=== PATIENT | female | born 1930 | race Caucasian/White ===

== ENCOUNTER 2016-10-24 10:21 | Observation (INO) | payer OTHER, MEDICARE ==
[~2016-10-24] VITALS: Ht 157.5 cm; Wt 56.7 kg
[~2016-10-24 10:21] MED LIST: ALBUTEROL1.25 MG/3 INH/SOL; ANTIVERT 12.512.5 MG PO; AUGMENTIN 875 M1 TAB PO; AUGMENTIN 875-1 EACH PO; CARVEDILOL25 M1 PO; CATAPRES-TTS 11 EACH TOP; COZAAR100 M1 PO; COZAAR50 M1 PO; FENOFIBRATE145 MG PO; FUROSEMIDE20 M1 PO; GUAIFENESIN-COD10 ML PO; KEFLEX500 M1 PO; LASIX20 M1 PO; LEVAQUIN500 MG PO; LEVOTHYROXINE50 MCG PO; LOPRESSOR50 M1 PO; LOSARTAN POTAS100 M1 PO; NEXIUM40 M1 PO; NORVASC 5MG TAB5 MG PO; ZOFRAN4 M1 PO
--- NOTE | 2016-10-24 10:45 | ED GENERAL ADULT ---
History of Present Illness General Chief Complaint: General Adult Stated Complaint: SENT IN BY DR WALKER, THINK HAVING [place] Source: patient Exam Limitations: no limitations Vital Signs & Intake/Output Vital Signs & Intake/Output Vital Signs Date Time Temp Pulse Resp B/P Pulse O2 O2 Flow FiO2 Ox Delivery Rate 10/24 1718 97.8 64 18 128/70 96 Room Air 10/24 1609 96.5 68 18 115/72 93 Room Air 10/24 1405 96.2 82 20 138/75 10/24 1405 96.2 82 20 138/75 10/24 1353 96.2 82 20 138/75 98 Room Air 10/24 1219 96.0 70 18 139/66 98 Room Air 10/24 1129 98 Room Air 10/24 1026 96.5 83 16 154/88 97 Room Air Allergies Coded Allergies: simvastatin (MUSCLE ACHES 06/11/16) Reconcile Medications Amlodipine Besylate 10 MG TABLET 1 TAB PO DAILY BP (Reported) Clonidine 0.2 MG/24 HOUR PATCH.TDWK 1 PAT TOP QW BP (Reported) EVERY FRIDAY Esomeprazole (Nexium) 40 MG CAPSULE.DR 1 CAP PO PRN GI (Reported) Hydrochlorothiazide 25 MG TABLET 1 TAB PO DAILY BP (Reported) Levothyroxine Sodium 50 MCG TABLET 1 TAB PO DAILY hypothyroidism (Reported) Losartan (Cozaar) 100 MG TABLET 100 MG PO DAILY hypertension Metoprolol Tartrate (Lopressor) 50 MG TABLET 1 TAB PO BID BP (Reported) Triage Note: 86 Y/O FEMALE SENT FROM DR HURST OFFICE FOR EVAL OF C/P X 3 DAYS; PT REPORTS HX GERD AND ATTRIBUTED SYMPTOMS TO THAT. REPORTS INTERMITTENT NAUSEA AND SOB. TAKEN FOR EKG/EVAL Triage Nurses Notes Reviewed? yes Onset: Abrupt Duration: day(s): Timing: recent history HPI: 10/24/16 11 AM 78-year-old female presents to the emergency department for chest pain and difficulty breathing. According to the patient over the past 3-4 days she's had intermittent episodes of chest pain. She thought that it was consistent with her gastroesophageal reflux but did not respond to antacids. The onset of the symptoms have been abrupt, the duration has been for several days, the severity is significant; as her symptoms required her to come to the emergency department for care. She has a past medical history of cardiac disease and is status post pacemaker insertion. Her EKG shows paced beats. She was seen and evaluated by Dr. Walker in his office today and she was referred for admission to the telemetry unit. She says that she does have associated palpitations. Also some minor shortness of breath. Review of systems, she does admit to some intermittent lower quadrant abdominal pain and bloating. Her past surgical history is significant for colostomy and reversal. Past History Travel History Traveled to [place] past 21 day No Medical History Any Pertinent Medical History? 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 No Review of Systems Review of Systems Constitutional: Denies: fever. EENTM: Denies: visual changes. Respiratory: Reports: short of breath. Cardiovascular: Reports: chest pain. GI: Reports: abdominal pain. Genitourinary: Reports: no symptoms. Musculoskeletal: Reports: no symptoms. Skin: Denies: rash. Neurological/Psychological: Reports: no symptoms. Hematologic/Endocrine: Reports: no symptoms. Physical Exam Physical Exam General Appearance: alert, awake, anxious, mild distress Head: atraumatic, normal appearance Eyes: Bilateral: normal appearance, PERRL, EOMI. Ears, Nose, Throat: normal pharynx, normal ENT inspection Neck: normal inspection, supple, full range of motion Respiratory: normal breath sounds, no respiratory distress Cardiovascular: regular rate/rhythm Peripheral Pulses: 4+ radial (R), 4+ radial (L) Gastrointestinal: soft, non-tender Back: normal range of motion Extremities: pedal edema Neurologic/Psych: no motor/sensory deficits, awake, alert, oriented x 3 Skin: intact, normal color, warm/dry Core Measures ACS in differential dx? Yes CVA/TIA Diagnosis: No Severe Sepsis Present: No Septic Shock Present: No Progress Differential Diagnoses I considered the following diagnoses in my evaluation of the patient: [Acute coronary syndrome, pulmonary embolism, costochondritis, COPD, CHF,] Plan of Care: Orders Procedure Date/time Status Nothing by Mouth 10/25 B Active LIPID PANEL 10/25 0600 Active CBC WITHOUT DIFFERENTIAL 10/25 0600 Active BASIC ELECTROLYTES PLUS BUN&CR 10/25 0600 Active DIPYRIDAMOLE STRESS W/NUC IMAG 10/25 0600 Active TROPONIN LEVEL 10/25 0000 Active EKG 10/25 0000 Active Heart Healthy Diet 10/24 D Complete PARTIAL THROMBOPLASTIN TIME 10/24 2030 Complete PROTHROMBIN TIME 10/24 2030 Complete PARTIAL THROMBOPLASTIN TIME 10/24 2028 Active Heparin Drip- ACS 10/24 1840 Active Vital Signs 10/24 1804 Complete Teach/Educate 10/24 1804 Complete Pain Treatment and Response 10/24 1804 Complete Nutritional Intake, Monitor 10/24 1804 Complete Isolation 10/24 1804 Complete Intake & Output 10/24 1804 Complete Patient Care Conference 10/24 1804 Active Activity/Ambulation 10/24 1804 Complete Vital Signs 10/24 1711 Complete Teach/Educate 10/24 1711 Active Pain Treatment and Response 10/24 1711 Active Nutritional Intake, Monitor 10/24 1711 Active Isolation 10/24 1711 Active Intake & Output 10/24 1711 Complete Patient Care Conference 10/24 1711 Active Activity/Ambulation 10/24 1711 Active TROPONIN LEVEL 10/24 1700 Complete EKG 10/24 1700 Active Pathway - chart 10/24 1422 Active Code Status 10/24 1422 Active ECHOCARDIOGRAM 10/24 1413 Active Patient Data 10/[address] in observation 10/24 1249 Active ED Holding Orders 10/24 1249 Active Vital Signs 10/24 1249 Active Code Status 10/24 1249 Complete Intake & Output 10/24 1048 Active TROPONIN LEVEL 10/24 1043 Complete MAGNESIUM 10/24 1043 Complete COMPREHENSIVE METABOLIC PANEL 10/24 1043 Complete CHOLESTEROL 10/24 1043 Complete CBC WITHOUT DIFFERENTIAL 10/24 1043 Complete EKG 10/24 1022 Active Pathway - chart 10/24 UNK Active House Staff 10/24 UNK Active Lab Add-on Test 10/24 UNK Active VTE Mechanical Prophylaxis 10/24 UNK Active CASE MANAGEMENT CONSULT 10/24 UNK Active Current Medications Sig/Norman Start time Last Medication Dose Stop Time Status Admin Aspirin 81 MG DAILY 10/25 1000 AC (Aspirin) Clonidine 2 PAT Q168 10/25 1000 AC (Catapres) Clopidogrel Bisulfate 75 MG DAILY 10/25 1000 AC (Plavix) Hydrochlorothiazide 25 MG DAILY 10/25 1000 AC (Hydrodiuril) Losartan Potassium 100 MG DAILY 10/25 1000 AC (Cozaar) Levothyroxine Sodium 0.05 MG DAILY AC 10/25 0700 AC (Synthroid) Omeprazole 40 MG BID 10/24 2200 AC (Prilosec) Atorvastatin Calcium 80 MG 1700 10/24 1700 AC (Lipitor) Acetaminophen 650 MG Q6P PRN 10/24 1430 AC (Tylenol) Morphine Sulfate 4 MG Q4P PRN 10/24 1430 AC (Morphine) Nitroglycerin 0.4 MG Q 5 MINUTES X 3 DO.. 10/24 1430 AC (Nitrostat) Laboratory Tests 10/24/16 2050: APTT Pending 10/24/16 1644: Troponin I < 0.01 10/24/16 1448: PT 11.5, INR 1.10, APTT 32 10/24/16 1110: Anion Gap 10, Estimated GFR 39 L, BUN/Creatinine Ratio 16.2, Glucose 92, Calcium 10.2, Magnesium 2.0, Total Bilirubin 0.7, AST 33, ALT 46, Alkaline Phosphatase 99, Troponin I < 0.01, Total Protein 7.5, Albumin 4.4, Globulin 3.1, Albumin/Globulin Ratio 1.4, Cholesterol 258 H 10/24/16 1045: PT Cancelled, INR Cancelled, APTT Cancelled, CBC w Diff NO MAN DIFF REQ, RBC 4.59, MCV 86.6, MCH 28.9, RDW 14.2, MPV 6.9 L, Gran % 65.0, Lymphocytes % 22.6, Monocytes % 8.5, Eosinophils % 2.7, Basophils % 1.2, Absolute Granulocytes 4.6, Absolute Lymphocytes 1.6, Absolute Monocytes 0.6, Absolute Eosinophils 0.2, Absolute Basophils 0.1, PUBS MCHC 33.4 Initial ED EKG: PACED BEATS Prior EKG: unchanged Departure Departure Disposition: STILL A PATIENT Condition: Stable Clinical Impression Primary Impression: Chest pain Referrals: NALLELY SANTOS,JULIAN Montelongo (PCP/Family) Departure Forms: Customer Survey General Discharge Information Comments PATIENT: MANUEL CHEN PRESENT AGE: 86 PATIENT ACCOUNT NO: [id number] : [birth year] LOCATION: [facility] ORDERING PHYSICIAN: CHAPARRO BELLO DO SERVICE DATE: 10/24/16 EXAM TYPE: RAD - XRY-PORTABLE CHEST XRAY EXAMINATION: XR PORTABLE CHEST CLINICAL INFORMATION: Chest pain. COMPARISON: 06/11/2016 TECHNIQUE: Portable AP view of the chest was obtained. FINDINGS: Lungs are symmetrically expanded. No evidence of progression in the chronic interstitial disease. No acute, focal consolidation, pneumothorax or pleural effusion. There is a right pectoral region cardiac pacemaker with transvenous leads extending to the right atrium and right ventricle. Mild cardiomegaly. There is atherosclerotic calcification of the aorta. Bone density appears diffusely decreased. There is mild-moderate osteoarthrosis of the glenohumeral joints. IMPRESSION: 1. Chronic interstitial lung disease. 2. No acute cardiopulmonary findings compared to 06/11/2016. DICTATED BY: PRAMOD ALVARADO MD DATE/TIME DICTATED:10/24/161107 INVENTORY AUDIT CLERK:CLAUDIA DATE/TIME TRANSCRIBED:10/24/161107 CONFIDENTIAL, DO NOT COPY WITHOUT APPROPRIATE AUTHORIZATION. <Electronically signed in Other Vendor System> SIGNED BY: PRAMOD ALVARADO MD 10/24/16 1110 The patient was treated with by mouth aspirin and placed in observation for stress testing in the a.m. Observation Note Spoke With: AARON SANTOS PhD,LEVI Gauthier Physician Advisor Notified: GINNY SANTOS,LEVI [facility] Place Patient In: Non-ED OBS Care Area Rationale for Observation: My rational for observation is as follows [the patient needs observation for serial troponins, cardiology consultation, telemetry monitoring, inpatient stress test]. Critical Care Note Critical Care Note Critical Care Time: non-applicable
[2016-10-24 10:54] LABS: ABSOLUTE BASOPHIL COUNT 0.1 /CUMM (0.0-0.2); ABSOLUTE EOSINOPHIL COUNT 0.2 /CUMM (0.0-0.7); ABSOLUTE GRANULOCYTE CT 4.6 /CUMM (1.4-6.5); ABSOLUTE LYMPH COUNT 1.6 /CUMM (1.2-3.4); ABSOLUTE MONOCYTE COUNT 0.6 /CUMM (0.10-0.60); BASOPHIL % 1.2 % (0.0-2.0); EOSINOPHIL % 2.7 % (0-5); HEMATOCRIT 39.8 % (37-47); MEAN CORPUSCULAR HGB 28.9 PG (27.0-31.0); MEAN CORPUSCULAR HGB CONC 33.4 G/DL (33.0-37.0); MEAN CORPUSCULAR VOLUME 86.6 FL (81.0-99.0); MEAN PLATELET VOLUME 6.9 FL (7.4-10.4); PLATELET COUNT 510 /CUMM (130-400); RBC DISTRIBUTION WIDTH 14.2 % (11.5-14.5); RED BLOOD CELL CT 4.59 /CUMM (4.20-5.40)
--- NOTE | 2016-10-24 11:15 | RADIOLOGY REPORT ---
EXAMINATION: XR PORTABLE CHEST CLINICAL INFORMATION: Chest pain. COMPARISON: 06/11/2016 TECHNIQUE: Portable AP view of the chest was obtained. FINDINGS: Lungs are symmetrically expanded. No evidence of progression in the chronic interstitial disease. No acute, focal consolidation, pneumothorax or pleural effusion. There is a right pectoral region cardiac pacemaker with transvenous leads extending to the right atrium and right ventricle. Mild cardiomegaly. There is atherosclerotic calcification of the aorta. Bone density appears diffusely decreased. There is mild-moderate osteoarthrosis of the glenohumeral joints. IMPRESSION: 1. Chronic interstitial lung disease. 2. No acute cardiopulmonary findings compared to 06/11/2016.
[2016-10-24] MEDS ORDERED: AMLODIPINE BESY10 M1 PO (13:39)
[2016-10-24] MEDS ORDERED: LOPRESSOR50 M1 PO (13:41)
[2016-10-24] MEDS ORDERED: HYDROCHLOROTHIA25 M1 PO (13:41)
[2016-10-24] MEDS ORDERED: CLONIDINE1 EAC1 TOP (13:42)
[2016-10-24 15:06] LABS: PT 11.5 SEC (9.4-12.5); PTT 32 SEC (25-37)
--- NOTE | 2016-10-24 16:06 | PN- Student ---
Subjective Subjective: Chief complaint: Chest pain w/ radiation to jaw and dyspnea Source: Patient and HPI: Mrs. Mcknight is an 86 year old white female with a pertinent history of paroxysmal atrial fibrillation, stroke, HTN, hyperlipidemia, GERD, and hyperthyroidism. She states that she has had a substernal chest pain with heaviness that was characterized as 9/10 on the pain scale for the last 3-4 days. She reports jaw pain associated with the chest pain along with nausea and vomitting, shortness of breath, and also stated an episode of light headedness. Her pain is aggravated with leaning forward and relieved by laying down. She thought her pain was associated with her GERD but when it didnt respond to medication she decided to seek medical attention. Upon seeing Dr. Girmes today she was referred to [place] ED for possible unstable angina or GERD exacerbation. PMH: She has a past medical history of paroxysmal atrial fibrillation, RBBB, 3rd degree AV block, and syncope (pacemaker in december 2015). She also has a history of HTN, hyprlipidemia, and cholelithiasis. Along with her hx of GERD she also reports Diverticulitis. She states a history of osteoarthritis, hypothyroidism, and stroke. Allergies- simvastatin Current Medications Sig/Norman Start time Last Medication Dose Stop Time Status Admin Aspirin 81 MG DAILY 10/25 1000 AC (Aspirin) Clonidine 2 PAT Q168 10/25 1000 AC (Catapres) Clopidogrel Bisulfate 75 MG DAILY 10/25 1000 AC (Plavix) Hydrochlorothiazide 25 MG DAILY 10/25 1000 AC (Hydrodiuril) Losartan Potassium 100 MG DAILY 10/25 1000 AC (Cozaar) Levothyroxine Sodium 0.05 MG DAILY AC 10/25 0700 AC (Synthroid) Omeprazole 40 MG BID 10/24 2200 AC (Prilosec) Atorvastatin Calcium 80 MG 1700 10/24 1700 AC (Lipitor) Acetaminophen 650 MG Q6P PRN 10/24 1430 AC (Tylenol) Morphine Sulfate 4 MG Q4P PRN 10/24 1430 AC (Morphine) Nitroglycerin 0.4 MG Q 5 MINUTES X 3 DO.. 10/24 1430 AC (Nitrostat) surgical hx- colon resection 7 yrs ago w/ colostomy and reversal, and colovaginal fistula repair, also has history of hiatal hernia surgery, and erik fundoplication. FH: no pertinent positives Social: patient denies smoking, denies alcohol use, and denies illicit drug use. ROS: slight epigastric discomfort as well as around lower left quadrant. Objective Objective: Vital Signs Date Time Temp Pulse Resp B/P Pulse O2 O2 Flow FiO2 Ox Delivery Rate 10/25 1205 118/70 10/25 1205 118/70 10/25 1205 118/70 10/25 1204 118/70 10/25 0746 97.8 59 16 110/70 95 Room Air 10/24 2230 97.3 62 18 124/64 96 Room Air 10/24 2120 62 124/64 10/24 1718 97.8 64 18 128/70 96 Room Air 10/24 1609 96.5 68 18 115/72 93 Room Air Physical Exam: Mrs. Mcknight is a healthy looking lady who did not appear to be in any acute distress. She did not have any labored breathing and was alert and oriented x 3. HEENT- [place], mucus membranes moist and pink, no lesions or bruising noted, no swelling or lymphadenopathy noted. tachea was midline. CV- S1 and S2 heard. no murmurs gallops or rubs. Lungs- bilateral basilar crackles heard on auscultation, good air flow heard. Abdominal- soft with no guarding, slight tenderness over epigastric area as well as lower left quadrant. Bowel sounds present. Skin- skin was well perfused, no lesions or echymosis noted MSK- strength equal bilaterally in both UE and LE. Some pain to palpation of left calf, no swelling or erythema noted, Ester's negative. EKG- continuous paced beats Results Results: Laboratory Tests 10/24/16 1448: PT 11.5, INR 1.10, APTT 32 10/24/16 1110: Anion Gap 10, Estimated GFR 39 L, BUN/Creatinine Ratio 16.2, Glucose 92, Calcium 10.2, Magnesium 2.0, Total Bilirubin 0.7, AST 33, ALT 46, Alkaline Phosphatase 99, Troponin I < 0.01, Total Protein 7.5, Albumin 4.4, Globulin 3.1, Albumin/Globulin Ratio 1.4, Cholesterol 258 H 10/24/16 1045: PT Cancelled, INR Cancelled, APTT Cancelled, CBC w Diff NO MAN DIFF REQ, RBC 4.59, MCV 86.6, MCH 28.9, RDW 14.2, MPV 6.9 L, Gran % 65.0, Lymphocytes % 22.6, Monocytes % 8.5, Eosinophils % 2.7, Basophils % 1.2, Absolute Granulocytes 4.6, Absolute Lymphocytes 1.6, Absolute Monocytes 0.6, Absolute Eosinophils 0.2, Absolute Basophils 0.1, PUBS MCHC 33.4 Assessment/Plan Assessment: Mrs. Mcknight is an 86 yo W female with a pertinent ho HTN, hyperlipidemia, Atrial fibrillation, and stoke. She was referred to us by Dr. Grimes for possible unstable angina due to chest pain w/radiation to jaw and sob for approximately 3-4 days. She has an implanted pacemaker, no abnormal EKG changes, and no elevation in troponins. Since arriving her pain has subsided and she appears to be in no acute distress nor does she have any difficulties breathing. Problem List: 1. Chest pain w/radiation to jaw and dyspnea- had pacemaker implanted 2015 2. CVA- occurred 8 years ago. 3. atria fibrillation- currently on anticoagulation therapy. 4. HTN- well controlled by current medications 5. Hyperlipidemia- currently on medications although levels still elevated ( cholesterol- 258). 6. GERD- seems to be controlled with current medication regiment 7. Hypothyroidism- controlled on current medications 8. COPD- not currently on medications. no symptoms. 9. LLE pain- described more like muscle soreness. Plan: Initial assessment is indicative of a possible current ACS, however severity is not known. No signs of ischemia was present on EKG. Patient most likely had a case of angina or possibly an episode of GERD. Will observe overnight and continue to check labs and telemetry for any changes and treat accordingly. Problem List: 1. Chest pain w/radiation and sob- serial troponins and EKG to assess for any sign of ischemia or infarction, Possible nuclear stress test. May need stress test to evaluate angina. maintain pain control with acetominophen 650mg Q6P PRN, morphine 4mg Q4P PRN, Nitroglycerin 0.4mg PRN. Continue aspirin therapy as well 81mg daily. 2. CVA- Continue plavix 75mg daily, check INR for therapeutic range. 3. atria fibrillation- continue anticoagulation therapy listed above 4. HTN- continue losartan 100mg daily, clonidine 2 PAT Q168, and hydrochlorothiazide 25mg daily for BP control 5. Hyperlipidemia- continue atorvastatin 80mg 1700, assess labs and titrate appropriately 6. GERD- continue omeprazole 40mg BID 7. Hypothyroidism- continue levothyroxine 0.05mg daily, assess with labs. 8. LLE pain- monitor pain. If it persists order venous dopler to assess for DVT.
[2016-10-24 17:18] VITALS: BP 128/70
--- NOTE | 2016-10-24 19:19 | Cons- Cardiology ---
"General Information and HPI Consulting Request Date of Consult: 10/24/16 Requested By: AARON SANTOS PhD,LEVI Gauthier History of Present Illness: Shelby is an 86 year old female with history of hypertension, dyslipidemia, CVA and chronic RBBB. She was last admitted to [facility] following a syncopal episode and was discovered to be in a third degree AV block. She is now s/p a [employer] MRI safe dual chamber permanent pacemaker and has a 100% ventricular paced rhythm. Over the past three days this patient has noted a moderate epigastric chest pressure radiating to her left jaw and shoulder. It is associated with vomiting, diaphoresis and shortness of breath. There is no relief by antacids. The discomfort is worse with walking but there is not complete relief even if she is still and lying down. She denies lightheadedness or any palpitaitons beyond baseline. To review this patient's prior history, following pacemaker placement this patient had felt dramatically improved and was more energetic. She was able to walk and think in a more lucid fashion. She did complain of a vertiginous sensation for a minute or so when she changed her position and planned to see Dr. Goodwin to evaluate for a labyrinthitis. At her baseline she reports brief palpitations lasting for a couple minutes on some nights. I do suspect that she may have renal artery stenosis but the patient has refused further workup with a renal artery MRA. Shelby has previously been very intolerant of antihypertensive medications, regardless of what I have prescribed. She previously reported an odd sensation in the back of her head and episodes of hypotension. She refused both Coreg and Labetolol although they both appeared to work well in terms of lowering her pressure. She also did not like the Lasix due to frequent urination. She stopped these medications and is currently on Losartan 100mg daily, Amlodipine 10mg daily, HCTZ 25mg daily, Metoprolol 50mg BID and a clonidine TTS1 patch. It should also be noted that her hospital admission was complicated by mild decompensated CHF in the setting of her heart block and receiving IV fluids to maintain her BP. To review this patients prior event she the felt weak and while eating dinner experienced a brief syncopal episode. In the ER she was initially in a sinus rhythm but subsequently became symptomatic and was found to be in complete heart block. Transcutaneous pacing was initiated along with sedation and I came in emergently to place a temporary pacemaker wire. Prior cardiac workup included an echocardiogram showing a normal EF of 60% with mild left ventricular hypertrophy and mild MR and TR. Her stress test showed a moderate size fixed inferior defect without ischemia. Her EF by this study was 49%. Allergies/Medications Allergies: Coded Allergies: simvastatin (MUSCLE ACHES 06/11/16) Home Med List: Amlodipine Besylate 10 MG TABLET 1 TAB PO DAILY BP (Reported) Clonidine 0.2 MG/24 HOUR PATCH.TDWK 1 PAT TOP QW BP (Reported) EVERY CADEN Esomeprazole (Nexium) 40 MG CAPSULE.DR 1 CAP PO PRN GI (Reported) Hydrochlorothiazide 25 MG TABLET 1 TAB PO DAILY BP (Reported) Levothyroxine Sodium 50 MCG TABLET 1 TAB PO DAILY hypothyroidism (Reported) Losartan (Cozaar) 100 MG TABLET 100 MG PO DAILY hypertension Metoprolol Tartrate (Lopressor) 50 MG TABLET 1 TAB PO BID BP (Reported) Past History Travel History Traveled to [place] past 21 day No Medical History Neurological: CVA EENT: NONE Cardiovascular: AFIB (paroxysmal), hypertension, hyperlipidemia, syncope, PAROXYSMAL AFIB RBBB 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, heart block s/p permanent pacemaker Respiratory: COPD Gastrointestinal: diverticulitis (with colostomy reversal), hiatal hernia, COLOSTOMY (REVERSED) Arpita fundoplication colonovaginal fistula s/p surgical repair Hepatic: cholelithiasis Renal: NONE Musculoskeletal: osteoarthritis Psychiatric: NONE Endocrine: hypothyroidism Blood Disorders: NONE Cancer(s): 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 Other Medical Hx: Hiatal Hernia Heart Block diverticulitis s/p colostomy with reversal paroxysmal atrial fibrillation HTN (HYPERTENSION) (401.9 | I10) PACEMAKER (V45.01 | Z95.0) Hypothyroidism colonovaginal fistula s/p repair Osteoarthritis Cholelithiasis aspiration pneumonitis RBBB (426.4 | I45.10) Arpita fundoplication CVA (CEREBRAL VASCULAR ACCIDENT) (434.91 | I63.9) SYNCOPE (780.2 | R55) DYSLIPIDEMIA (272.4 | E78.5) Surgical History Surgical History: Arpita fundoplication colonovaginal fistula s/p repair Family History Relations & Conditions If Any: Relation not specified for: *No pertinent family history Psychosocial History Where Do You Live? Assisted Living Who Do You Live With? spouse Services at Home: Oxygen Primary Language: Irish Smoking Status: Never Smoked ETOH Use: denies use Illicit Drug Use: denies illicit drug use Living Will? yes Functional Ability ADLs Independent: dressing, eating, toileting, bathing. Ambulation: cane IADLs Independent: shopping, housework, finances, food prep, telephone, transportation , medication admin. Exam & Diagnostic Data Vital Signs and I&O Vital Signs Date Time Temp Pulse Resp B/P Pulse O2 O2 Flow FiO2 Ox Delivery Rate 10/24 1718 97.8 64 18 128/70 96 Room Air 10/24 1609 96.5 68 18 115/72 93 Room Air 10/24 1405 96.2 82 20 138/75 10/24 1405 96.2 82 20 138/75 10/24 1353 96.2 82 20 138/75 98 Room Air 10/24 1219 96.0 70 18 139/66 98 Room Air 10/24 1129 98 Room Air 10/24 1026 96.5 83 16 154/88 97 Room Air Intake & Output 10/24 1600 10/24 0800 10/24 0000 10/23 1600 10/23 0800 10/23 0000 Intake Total Output Total Balance Patient 125 lb Weight Physical Exam: General: WD/ WN female in NAD; alert and oriented x 3 HEENT: NC/AT, PERRL, EOMI Neck: no JVD, no carotid bruit Heart: RRR with 3/6 systolic murmur at the apex and RUSB Lungs: clear bilaterally Abdomen: soft, nontender, +ve bowel sounds Extremities: no edema Assessment/Plan Assessment/Plan * Shelby has risk factors for coronary artery disease and symptoms consistent with this diagnosis. Unfortunately, her ECG shows a 100% paced rhythm and therefore is not helpful for diagnosing ischemia. Her first set of cardiac enzymes is reassuring. We will admit this patient to telemetry and treat her for unstable angina. Obtain three sets of cardiac enzymes to assess for a possible MD. Begin aspirin, Plavix and IV heparin. Continue her beta juan and begin a statin. If recurrent chest pain begin NTG paste 1/2 inch Q 6 hours. If she rules out for an MD we ted risk stratify her with a pharmocologic stress test in the morning. * Obtain an echocardiogram * If myocardial ischemia is ruled out then we will consider a GI consult for evaluation of a GI source of pain. For now begin a PPI. Consult Acknowledgment - Thank you for your consult request."
--- NOTE | 2016-10-24 21:52 | History & Physical ---
See Addendum DONNA SANTOS,NELLA 10/24/16 1419: General Information and HPI MD Statement: I have seen and personally examined MANUEL CHEN and documented this H&P. The patient is a 86 year old F who referred from Dr Grimes's office for chest pain for three days. Source of Information: patient Exam Limitations: no limitations History of Present Illness: 86 yo F with pmh of afib and third degree AV block s/p pacemaker placement in December 2015, hypertension, dyslipidemia, CVA 8 years ago, chronic right bundle- branch block, hiatal hernia s/p Arpita fundoplication, hypothyroidism, osteoarthritis, colovaginal fistula s/p surgical repair, was referred from Dr. Grimes's clinic after being initially for chest pain since 3 days. According to the patient, she was in her usual state of health 3 days ago when she started having central substernal chest pain, and she started when she was in stool, walking, was severe, 8-9/10 in severity, and is associated with nausea but no vomiting, and she also "felt hot" then. She has history of GERD and used to have similar symptoms which was previously amenable to antacids, but not this time. "Peptobismal" seemed to help her to some extent but leaning forward or walking made it worse. She admitted to some shortness of breath as well, which improved with rest. Also admitted to some pain over right side of her abdomen vaguely when questioned. She denied fever, cough, bowel or bladder changes, legs swelling, headache, long travel, and was compliant to her medications. She visited her laundry folder Dr Vickey Grimes for the same who referred her to the emergency department given her symptoms and past cardiac history to be evaluated and further managed. Allergies/Medications Allergies: Coded Allergies: simvastatin (MUSCLE ACHES 06/11/16) Home Med list Amlodipine Besylate 10 MG TABLET 1 TAB PO DAILY BP (Reported) Clonidine 0.2 MG/24 HOUR PATCH.TDWK 1 PAT TOP QW BP (Reported) EVERY FRIDAY Esomeprazole (Nexium) 40 MG CAPSULE. 1 CAP PO PRN GI (Reported) Hydrochlorothiazide 25 MG TABLET 1 TAB PO DAILY BP (Reported) Levothyroxine Sodium 50 MCG TABLET 1 TAB PO DAILY hypothyroidism (Reported) Losartan (Cozaar) 100 MG TABLET 100 MG PO DAILY hypertension Metoprolol Tartrate (Lopressor) 50 MG TABLET 1 TAB PO BID BP (Reported) Past History Travel History Traveled to [place] past 21 day No Medical History Neurological: CVA EENT: NONE Cardiovascular: AFIB (paroxysmal), hypertension, hyperlipidemia, syncope, PAROXYSMAL AFIB RBBB 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 heart block s /p permanent pacemaker Gastrointestinal: diverticulitis (with colostomy reversal), hiatal hernia, COLOSTOMY (REVERSED) Arpita fundoplication colonovaginal fistula s/p surgical repair Hepatic: cholelithiasis Renal: NONE Musculoskeletal: osteoarthritis Psychiatric: NONE Endocrine: hypothyroidism Blood Disorders: NONE Cancer(s): 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 Other Medical Hx: Hiatal Hernia Heart Block diverticulitis s/p colostomy with reversal paroxysmal atrial fibrillation HTN (HYPERTENSION) (401.9 | I10) PACEMAKER (V45.01 | Z95.0) Hypothyroidism colonovaginal fistula s/p repair Osteoarthritis Cholelithiasis aspiration pneumonitis RBBB (426.4 | I45.10) Arpita fundoplication CVA (CEREBRAL VASCULAR ACCIDENT) (434.91 | I63.9) SYNCOPE (780.2 | R55) DYSLIPIDEMIA (272.4 | E78.5) History of MRSA: No History of VRE: No History of CDIFF: No Isolation History: Standard Influenza Vaccine: 04/13/16 Surgical History Surgical History: Arpita fundoplication colonovaginal fistula s/p repair Past Family/Social History Family History Relations & Conditions if any Relation not specified for: *No pertinent family history Psychosocial History Where do you live? Assisted Living Who Do You Live With? spouse Services at Home: Oxygen Primary Language: Citizen Of [place] Smoking Status: Never Smoked ETOH Use: denies use Illicit Drug Use: denies illicit drug use Living Will? yes Functional Ability ADLs Independent: dressing, eating, toileting, bathing. Ambulation: cane IADLs Independent: shopping, housework, finances, food prep, telephone, transportation , medication admin. Review of Systems Review of Systems Constitutional: Reports: see HPI. EENTM: Reports: no symptoms. Cardiovascular: Reports: see HPI, chest pain, palpitations. Denies: edema, peripheral edema. Respiratory: Reports: no symptoms. GI: Reports: see HPI, abdominal pain (right anterior half). Genitourinary: Reports: see HPI (incontinence). Musculoskeletal: Reports: no symptoms. Skin: Reports: no symptoms. Neurological/Psychological: Reports: no symptoms. Hematologic/Endocrine: Reports: no symptoms. All Other Systems: Reviewed and Negative Post Menopausal: Yes Exam & Diagnostic Data Last 24 Hrs of Vital Signs/I&O Vital Signs Date Time Temp Pulse Resp B/P Pulse O2 O2 Flow FiO2 Ox Delivery Rate 10/240 62 124/64 10/24 1718 97.8 64 18 128/70 96 Room Air 10/24 1609 96.5 68 18 115/72 93 Room Air 10/24 1405 96.2 82 20 138/75 10/24 1405 96.2 82 20 138/75 10/24 1353 96.2 82 20 138/75 98 Room Air 10/24 1219 96.0 70 18 139/66 98 Room Air 10/24 1129 98 Room Air 10/24 1026 96.5 83 16 154/88 97 Room Air Intake & Output 10/24 1600 10/24 0800 10/24 0000 Intake Total Output Total Balance Patient 56.699 kg Weight Physical Exam General Appearance Alert, Oriented X3, Cooperative, No Acute Distress Skin No Rashes, No Breakdown, No Significant Lesion HEENT Atraumatic, PERRLA, EOMI, Mucous Membr. moist/pink Neck Supple, No JVD Lymphatic Cervical nl Cardiovascular Regular Rate, Normal S1, Normal S2 Lungs Clear to Auscultation, b/l basal crackles present, otherwise normal breath sounds Abdomen Normal Bowel Sounds, Soft, No Tenderness Neurological grossly intact Extremities No Clubbing, No Cyanosis, No Edema, Normal Pulses, No Tenderness/ Swelling Vascular Normal Pulses, Pulses Symmetrical Rectal Guiac Negative Last 24 Hrs of Labs/Pete: Laboratory Tests 10/24/16 2050: APTT Pending 10/24/16 1644: Troponin I < 0.01 10/24/16 1448: PT 11.5, INR 1.10, APTT 32 10/24/16 1110: Anion Gap 10, Estimated GFR 39 L, BUN/Creatinine Ratio 16.2, Glucose 92, Calcium 10.2, Magnesium 2.0, Total Bilirubin 0.7, AST 33, ALT 46, Alkaline Phosphatase 99, Troponin I < 0.01, Total Protein 7.5, Albumin 4.4, Globulin 3.1, Albumin/Globulin Ratio 1.4, Cholesterol 258 H 10/24/16 1045: PT Cancelled, INR Cancelled, APTT Cancelled, CBC w Diff NO MAN DIFF REQ, RBC 4.59, MCV 86.6, MCH 28.9, RDW 14.2, MPV 6.9 L, Gran % 65.0, Lymphocytes % 22.6, Monocytes % 8.5, Eosinophils % 2.7, Basophils % 1.2, Absolute Granulocytes 4.6, Absolute Lymphocytes 1.6, Absolute Monocytes 0.6, Absolute Eosinophils 0.2, Absolute Basophils 0.1, PUBS MCHC 33.4 Diagnostic Data EKG Results paced rhythm, rate 89, QTc 476, AZ 180, QRS 154 CXR Results IMPRESSION: 1. Chronic interstitial lung disease. 2. No acute cardiopulmonary findings compared to 06/11/2016. DICTATED BY: PRAMOD ALVARADO MD DATE/TIME DICTATED:10/24/161107 JAVA PROGRAMMING PROFESSOR:CLAUDIA DATE/TIME TRANSCRIBED:10/24/161107 Assessment/Plan Assessment: 86 yo F with pmh of afib and third degree AV block s/p pacemaker placement in December 2015, hypertension, dyslipidemia, CVA 8 years ago, chronic right bundle- branch block, hiatal hernia s/p Arpita fundoplication, hypothyroidism, osteoarthritis, colovaginal fistula s/p surgical repair, was referred from Dr. Grimes's clinic after being initially for chest pain since 3 days. She is currently being observed in the telemetry floor for the following issues: #Chest pain evaluation, ruling out unstable angina Patient's cardiac history, symptom of substernal chest pain which is different than her usual GERD symptoms, associated with nausea, shortness of breath that decreases with rest, not amenable to antacids, warrants an evaluation for angina. Her initial two sets of troponins are negative, but her EKG cannot be commented as it is paced. -Patient to be observed in telemetry unit -Patient already received a full dose of aspirin and plavix in the emergency department -Stress testing tomorrow, so NPO from midnight -Nitroglygerin paste as needed for chest pain -Adequate pain control, and rest -Guiac test is negative (test done by me in the emergency department), so can start IV Heparin drip -Echocardiogram to assess wall motion abnormalities, and cardiac functioning -If unstable angina is rule out, then will pursue GI consultation and workup -Resume her home meds for now #GERD -Continue PPI -If unstable angina is rule out, then will pursue GI consultation and workup #Hypertension Continue home meds Amlodipine, Losartan, Metoprolol, HCTZ, Clonidine patch #Hyperlipidemia Continue statin from home #Diet Heart healthy #DVT ppx IV Heparin #Code status DNR/DNI As Ranked By This Provider Problem List: 1. Unstable angina 2. Chest pain 3. Hyperlipidemia 4. Hyperthyroidism 5. Essential hypertension Core Measures/Miscellaneous Acute Coronary Syndrome ACS Diagnosis: Yes Date of most recent Echo 11/07/14 Last Known EF % 65 SCOTT/ARB For EF <40% Yes ASA W/I 24hr of admit Yes Beta-Alberto W/I 24hrs Yes LDL assessed W/I 24 hrs Yes Currently on Statin Yes Cerebrovascular Accident CVA/TIA Diagnosis: No Congestive Heart Failure CHF Diagnosis: No Venous Thromboembolism VTE Risk Factors: Age > 40 No [facility] VTE prophylaxis d/t: No contraindications No VTE Pharm Prophylaxis d/t: No contraindications VTE Diagnosis: No VTE Type: NONE VTE Confirmed by (Test): NONE Severe Sepsis Severe Sepsis Present: No Septic Shock Septic Shock Present: No Miscellaneous Documentation Attending Case Discussed With: AARON SANTOS PhD,VICKEY Gauthier Primary Care Physician: JULIAN BROWNING MD Patient sees these Specialists Cardiology Level of Patient Care: Telemetry YVON BEASLEY 10/24/16 2310: Resident Review Statement Resident Statement: examined this patient, discussed with public health internship, agreed with public health internship, amended to note Other Findings: 86-year-old lady with past medical history of hypothyroidism, hypertension, pacemaker with history of paroxysmal A. fib,ILD?, Bowel perforation is status post colostomy reversal , GERD that the's fundoplication in with chief complaint of chest pain for 3 days. She reports that she has substernal chest pain 8 out of 10 associated with shortness of breath and occasional palpitations with one-time sweating which happen intermittently during his 3 days. Patient reported that she also had very severe GERD however after taking Zantac her pain did not go away. But after taking Pepto-Bismol Savastano chest pain was markedly better. Patient denies any fever, chills and diarrhea and constipation any coughing. Given the acute nature of the chest pain, patient saw Dr. Grimes today and is getting admitted for getting the nuclear stress test tomorrow. Vital signs on admission were stable, Skin No Rashes, No Breakdown, No Significant Lesion HEENT Atraumatic, PERRLA, EOMI Neck Supple, No JVD, No thryomegaly Lymphatic Cervical nl Cardiovascular Regular Rate, Normal S1, Normal S2, 3/6 systolic Lungs bilateral crackles in the lung (mid lungs) Abdomen Normal Bowel Sounds, Soft, mild left sided abdominal pain in the previous colostomy area Neurological Normal Speech, Strength at 5/5 X4 Ext, Sensation Intact Extremities No Clubbing, No Cyanosis, No Edema,Normal Pulses stool Heme occult test was negative CBC was remarkable for elevated platelets, creatinine 1.3(baseline), troponin wasunremarkable EKG showed ventricular pacing, rate 73, unable to assess the STT changes due to ventricular pacing rhythm Assessment and plan chest pain /rule out ACS ACS * Admit to Telemetry 24 hour monitoring * Serial EKGs and Troponins x 3 * Administer Aspirin 325 mg PO and plavix PO 300 once * Check Vital Signs Q6 * Cardiology Dr [place] already aware * Echocardiography * Check CBC, BEP * [facility] * High doses statin, aspirin, Plavix daily * NPO for nuclear stress test tomorrow * Administer Heparin 30100 U IV Q24 * Nitroglycerin when necessary for chest pain * Tylenol and morphine for pain hx of GERD * IV PPI and GI cocktail once * 40 mg omeprazole twice a day starting from tomorrow HTN * Continue continue clonide patch (0.2 mg) every 7 days changing on Fridays * Continue metoprolol, amlodipine, hydrochlorothiazide, losartan Hypothyroidism * Continue levothyroxine DNR/DNI, heart healthy diet, DVT prophylaxis is mechanical and IV heparin
[2016-10-24 22:30] VITALS: BP 124/64
[2016-10-24 22:32] LABS: PTT 69 SEC (25-37)
--- NOTE | 2016-10-25 06:53 | PN- Housestaff ---
Subjective Follow-up For: chest pain Complaints: no complaints Tele-Events Since Last Visit: Overnight telemetry shows single pacing, hr 59-61, no overnight event Subjective: Patient being observed in telemetry for chest pain. I followed up and examine the patient today. She is resting comfortably in a chair, not in distress, does not have any chest pain or discomfort anymore, vitals have been stable, no overnight events. Specifically, no nausea, vomiting, shortness of breath, swelling of legs, has not required additional oxygen. She is currently waiting for the stress test and is eager to know if she can go home soon. Review of Systems Constitutional: Reports: no symptoms, see HPI. Objective Last 24 Hrs of Vital Signs/I&O Vital Signs Date Time Temp Pulse Resp B/P Pulse O2 O2 Flow FiO2 Ox Delivery Rate 10/25 1624 98.6 60 18 110/70 95 Room Air 10/25 1600 Room Air 10/25 1205 118/70 10/25 1205 118/70 10/25 1205 118/70 10/25 1204 118/70 10/25 0746 97.8 59 16 110/70 95 Room Air 10/24 2230 97.3 62 18 124/64 96 Room Air 10/24 2120 62 124/64 10/24 1718 97.8 64 18 128/70 96 Room Air Intake & Output 10/25 1600 10/25 0800 10/25 0000 Intake Total 675 157.2 112 Output Total Balance 675 157.2 112 Intake, IV 75 107.2 112 Intake, Oral 600 50 Number 0 0 Bowel Movements Patient 56.699 kg Weight Physical Exam General Appearance: Alert, Oriented X3, Cooperative, No Acute Distress Other Physical Findings: Skin No Rashes, No Breakdown, No Significant Lesion HEENT Atraumatic, PERRLA, EOMI, Mucous Membr. moist/pink Neck Supple, No JVD Lymphatic Cervical nl Cardiovascular Regular Rate, Normal S1, Normal S2 Lungs Clear to Auscultation, b/l basal crackles present, otherwise normal breath sounds Abdomen Normal Bowel Sounds, Soft, No Tenderness Neurological grossly intact Extremities No Clubbing, No Cyanosis, No Edema, Normal Pulses, No Tenderness/ Swelling Vascular Normal Pulses, Pulses Symmetrical Current Medications: Current Medications Sig/Norman Start time Last Medication Dose Route Stop Time Status Admin Acetaminophen 650 MG Q6P PRN 10/24 1430 AC PO Amlodipine Besylate 10 MG DAILY 10/24 1358 AC 10/25 PO 1205 Aspirin 81 MG DAILY 10/25 1000 DC PO Atorvastatin Calcium 80 MG 1700 10/24 1700 AC PO Clonidine 2 PAT Q168 10/25 1000 AC 10/25 TOP 1204 Clopidogrel Bisulfate 75 MG DAILY 10/25 1000 AC 10/25 PO 1204 Dipyridamole 30 MG ONE ONE 10/25 0830 DC Dextrose/Water 34 ML IV 10/25 0859 Heparin Sodium 25,000 UNIT Q24H 10/24 1415 DC 10/24 (Porcine) IV 1428 Sodium Chloride 500 ML Hydrochlorothiazide 25 MG DAILY 10/25 1000 AC 10/25 PO 1205 Levothyroxine Sodium 0.05 MG DAILY AC 10/25 0700 AC 10/25 PO 0633 Losartan Potassium 100 MG DAILY 10/25 1000 AC 10/25 PO 1205 Metoprolol Tartrate 50 MG BID 10/24 1400 AC 10/25 PO 1205 Morphine Sulfate 4 MG Q4P PRN 10/24 1430 AC IV Nitroglycerin 0.4 MG Q 5 MINUTES X 3 DO.. 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 Grimes's clinic after being initially for chest pain since 3 days. Continuing to observe patient in telemetry floor for the following issues: #Chest pain evaluation, ruling out unstable angina Patient's cardiac history, symptom of substernal chest pain which is different than her usual GERD symptoms, associated with nausea, shortness of breath that decreases with rest, not amenable to antacids, warrants an evaluation for angina. Her 3 sets of troponins are negative, but her EKG cannot be commented as it is paced. -Continue to observe in telemetry unit until she gets pharmacologic stress test and depending on the results we can decide further management/disposition -Continue Nitroglygerin paste as needed for chest pain -Adequate pain control, and rest -Echocardiogram shows normal ejection fraction 65%, with impaired LV relaxation, borderline pulmonary hypertension among others, wall motion abnormalities were not noted -Resume her home meds for now -UPDATE: Persantine Stress test and resting SPECT test results: A small fixed perfusion abnormality involving the apex and adjacent apical anterior wall is noted. Minimal reversible component may be present, but this abnormality is predominantly fixed. No other perfusion abnormalities are noted. Left ventricular wall motion and ejection fraction are normal. #GERD -Continue PPI -If unstable angina is rule out, then will pursue GI consultation and workup #Hypertension Continue home meds Amlodipine, Losartan, Metoprolol, HCTZ, Clonidine patch #Hyperlipidemia Continue statin from home #Diet Heart healthy #DVT ppx IV Heparin #Code status DNR/DNI Problem List: 1. Chest pain Pain Ratin Pain Location: - Pain Goal: Remain pain free Pain Plan: prn Tomorrow's Labs & Rationales: -
[2016-10-25 07:46] VITALS: BP 110/70
--- NOTE | 2016-10-25 08:59 | ECHOCARDIOGRAM REPORT ---
MANUEL CHEN Age: 86 : 1930 Gender: F Exam Date: 10/24/2016 18:35 Exam Location: [address] Ht (in): 62 Wt (lb): 125 BSA: 1.58 BP: 128 / 70 Ordering Physician: YVON BEASLEY MD Referring Physician: Vickey Grimes MD, PhD Technologist: Nicole Lopes [facility] Room Number: [id number] Indications: CHEST PAIN Rhythm: atrial and ventricular paced rhythm Technical Quality: good FINDINGS Left Ventricle Normal left ventricular size with mild left ventricular hypertrophy. Normal systolic function with no obvious regional wall motion abnormalities. Diastolic filling patterm is consistent with impaired LV relaxation. The ejection fraction is visually estimated at 65%. Right Ventricle The right ventricle is normal in size and function. Pacemaker lead is noted. Right Atrium The right atrium is normal in size. Pacemaker lead noted. Left Atrium The left atrium is mildly enlarged. The interatrial septum is intact. Mitral Valve The mitral valve demonstrates mild posterior annular calcification with normal function. There is trace to mild mitral regurgitation. Aortic Valve Moderately sclerotic aortic valve with mild to moderate stenosis stenosis. There is no aortic regurgitation. Tricuspid Valve The tricuspid valve is normal in structure and function. There is moderate tricuspid regurgitation. Pulmonary artery systolic pressure is mildly elevated to 36mmHg. Pulmonic Valve Structurally normal pulmonic valve. There is mild pulmonic regurgitation. Pericardium Normal pericardium without effusion. No pleural effusion. Great Vessels Normal aortic root dimension. The aortic arch and great vessels are well seen and are normal. CONCLUSIONS 1. Normal EF of 65% with impaired LV relaxation. 2. Mild left ventricular hypertrophy. 3. Right atrial and ventricular pacemaker leads noted. 4. Mild left atrial enlargment. 5. Mitral annular calcification wtih trace to mild mitral regurgitation. 6. Moderate tricuspid regurgitation. 7. Mild pulmonic regurgitation. 8. Mild to moderate aortic stenosis. 9. Borderline pulmonary hypertension. Vickey Grimes M.D. (Electronically Signed) Final Date: 25 October 2016 08:58 MEASUREMENTS (Male / Female) Normal Values 2D ECHO LV Diastolic Diameter PLAX 3.7 cm 4.2 - 5.9 / 3.9 - 5.3 cm LV Systolic Diameter PLAX 2.1 cm 2.1 - 4.0 cm LV Fractional Shortening PLAX 43.2 % 25 - 46 % LV Ejection Fraction 2D Teich 75.2 % IVS Diastolic Thickness 1.4 cm LVPW Diastolic Thickness 1.4 cm LV Relative Wall Thickness 0.8 RV Internal Dim ED PLAX 2.9 cm 1.9 - 3.8 cm LVOT Diameter 2.2 cm Aortic Root Diameter 3.1 cm LA Systolic Diameter LX 4.2 cm 3.0 - 4.0 / 2.7 - 3.8 cm LA Volume 19.0 cm 18 - 58 / 22 - 52 cm Ascending Aorta Diameter 3.7 cm DOPPLER AV Peak Velocity 230.0 cm/s AV Peak Gradient 21.2 mmHg AV Mean Velocity 138.0 cm/s AV Mean Gradient 9.0 mmHg AV Velocity Time Integral 44.0 cm LVOT Peak Velocity 67.7 cm/s LVOT Peak Gradient 1.8 mmHg LVOT Mean Velocity 45.7 cm/s LVOT Mean Gradient 1.0 mmHg LVOT Velocity Time Integral 14.0 cm LVOT Stroke Volume 53.2 cm AV Area Cont Eq vti 1.2 cm AV Area Cont Eq pk 1.1 cm MV Peak Velocity 115.0 cm/s MV Peak Gradient 5.3 mmHg MV Mean Velocity 57.8 cm/s MV Mean Gradient 2.0 mmHg Mitral E Point Velocity 58.7 cm/s Mitral A Point Velocity 104.0 cm/s Mitral E to A Ratio 0.6 MV PHT Velocity 65.2 cm/s MV Deceleration [place] 149.0 cm/s MV Pressure Half Time 131.3 ms MV Area PHT 1.7 cm MV Deceleration Time 325.0 ms TR Peak Velocity 276.0 cm/s TR Peak Gradient 30.5 mmHg Right Atrial Pressure 5.0 mmHg Pulmonary Artery Systolic Pressu 35.5 mmHg Right Ventricular Systolic Press 35.5 mmHg PV Peak Velocity 97.9 cm/s PV Peak Gradient 3.8 mmHg PV Mean Velocity 62.3 cm/s PV Mean Gradient 2.0 mmHg PV Velocity Time Integral 18.2 cm LV E' Lateral Velocity 6.5 cm/s Mitral E to LV E' Lateral Ratio 9.0 LV E' Septal Velocity 4.8 cm/s Mitral E to LV E' Septal Ratio 12.3
[2016-10-25 10:04] LABS: PTT 108 SEC (25-37)
--- NOTE | 2016-10-25 10:25 | PN- Cardiology ---
Subjective Subjective: * Patient feels much better today. No chest discomfort or shortness of breath. * Troponins are normal Objective Vital Signs and I&Os Vital Signs Date Time Temp Pulse Resp B/P Pulse O2 O2 Flow FiO2 Ox Delivery Rate 10/25 0746 97.8 59 16 110/70 95 Room Air 10/24 2230 97.3 62 18 124/64 96 Room Air 10/24 2120 62 124/64 10/24 1718 97.8 64 18 128/70 96 Room Air 10/24 1609 96.5 68 18 115/72 93 Room Air 10/24 1405 96.2 82 20 138/75 10/24 1405 96.2 82 20 138/75 10/24 1353 96.2 82 20 138/75 98 Room Air 10/24 1219 96.0 70 18 139/66 98 Room Air 10/24 1129 98 Room Air 10/24 1026 96.5 83 16 154/88 97 Room Air Intake & Output 10/25 1600 10/25 0800 10/25 0000 10/24 1600 10/24 0800 10/24 0000 Intake Total 157.2 112 Output Total Balance 157.2 112 Intake, IV 107.2 112 Intake, Oral 50 Number 0 0 Bowel Movements Patient 125 lb 125 lb Weight Physical Exam: General: WD/ WN female in NAD; alert and oriented x 3 Neck: no JVD, no carotid bruit Heart: RRR with 3/6 systolic murmur at the apex and RUSB Lungs: clear bilaterally Extremities: no edema Assessment/Plan Assessment/Plan * This patient is doing better with no evidence of an VA. We can stop her aspirin but continue Plavix at 75mg daily. Stop IV heparin. The patient is being risk stratified with a pharmocologic stress test. If this is WNL then we will discharge to home on her usual home meds plus, Plavix, Atorvastatin and a PPI with a plan for outpatient follow up with GI. Continue telemetry? Yes
[2016-10-25] MEDS ORDERED: ATORVASTATIN CA80 M1 PO (14:41)
[2016-10-25] MEDS ORDERED: PLAVIX75 M1 PO (14:42)
--- NOTE | 2016-10-25 14:57 | Patient Discharge Instructions ---
Discharge Instructions General Discharge Information You were seen/treated for: Evaluation of chest pain You had these procedures: Pharmacologic stress testing Watch for these problems: Chest pain, shortness of breath, heaviness of chest, nausea/vomiting, or exercise intolerance Special Instructions: Please take your medications as prescribed. Some of the medications have been added to your regimen and explained to you accordingly. Please follow-up with her primary care physician within 7 days of discharge. Please follow-up with your drier transfer car operator (Dr Vickey Grimes) within 7 days of discharge. Please follow-up with your GI doctor (Dr Stewart Aguila) within ten days of discharge. All the referrals have been recommended below. Please return to emergency if symptoms worsen. Diet Continue normal diet: No Recommended Diet: Heart Healthy Activity Full Activity/No Limits: No Activity Self Limited: Yes Acute Coronary Syndrome Inclusion Criteria At DC or during hospital stay patient has or had the following: ACS DIAGNOSIS No Discharge Core Measures Meds if any: Prescribed or Continued at Discharge Meds if any: NOT Prescribed or Continued at Discharge Congestive Heart Failure Inclusion Criteria At DC or during hospital stay patient has or had the following: CHF DIAGNOSIS No Discharge Core Measures Meds if any: Prescribed or Continued at Discharge Meds if any: NOT Prescribed or Continued at Discharge Cerebrovascular accident Inclusion Criteria At DC or during hospital stay patient has or had the following: CVA/TIA Diagnosis No Discharge Core Measures Meds if any: Prescribed or Continued at Discharge Meds if any: NOT Prescribed or Continued at Discharge Venous thromboembolism Inclusion Criteria VTE Diagnosis No VTE Type NONE VTE Confirmed by (Test) NONE Discharge Core Measures - Per Current guidelines, there needs to be overlap - treatment for the first 5 days of Warfarin therapy. - If discharged on Warfarin prior to 5 days of - overlap therapy, the patient will need to be - assessed for post discharge needs including - *Post discharge parental anticoagulation - *Warfarin and/or parental anticoagulation education - *Follow up date to check INR post discharge At least 5 days overlap therapy as Inpatient No Meds if any: Prescribed or Continued at Discharge Note: Overlap Therapy is Warfarin and Anticoagulant Meds if any: NOT Prescribed or Continued at Discharge
--- NOTE | 2016-10-25 16:07 | NUCLEAR MEDICINE REPORT ---
PERSANTINE STRESS AND RESTING SPECT MYOCARDIAL PERFUSION IMAGING STUDY WITH GATED SPECT IMAGES: CLINICAL INDICATION: Chest pain. PROCEDURE: Regional myocardial perfusion was assessed using a 1 day protocol. Stress images were obtained on 10/25/2016 following the intravenous administration of 18 mCi Tc 99m Myoview. Stress consisted of 30 mg Persantine given intravenously. Following the sestamibi injection, 125 mg aminophylline was given intravenously. Rest images were obtained 10/25/2016 following the intravenous administration of 30.8 mCi Technetium 99m Myoview. Single photon emission tomographic (SPECT) images were obtained. SPECT images were acquired in a 64 x 64 matrix of 64 projections over 180 degrees. These were reconstructed into standard short axis, horizontal and vertical long axis cardiac projections. FINDINGS: The post stress images show the left ventricular chamber to be normal in size. There is a small region of moderately to markedly diminished activity involving the apex and adjacent apical anterior wall. The activity in the other armendariz appears normal. The rest images are very similar to the post stress images with possible very minimal improvement in a portion of the apical septal wall. Abnormality at adjacent apex does not appear significantly changed. The stress images were obtained using a gated SPECT technique, which permits visualization of wall motion and calculation of the left ventricular ejection fraction. The left ventricular chamber is normal in size. No left ventricular wall motion abnormalities are present. The calculated left ventricular ejection fraction is 77% on the stress study. No previous studies available for comparison. IMPRESSION: A small fixed perfusion abnormality involving the apex and adjacent apical anterior wall is noted. Minimal reversible component may be present, but this abnormality is predominantly fixed. No other perfusion abnormalities are noted. Left ventricular wall motion and ejection fraction are normal.
[2016-10-25 16:24] VITALS: BP 110/70
[2016-10-25] MEDS ORDERED: NEXIUM40 M1 PO (17:17)
[2016-10-25] MEDS ORDERED: ATORVASTATIN CA40 M1 PO (17:17)
--- NOTE | 2016-10-29 13:59 | IV DIPYRIDAMOLE NUCLEAR STRESS ---
Clinical Diagnosis: Atrial fibrillation, HTN, pacemaker Pedal Assembler: Apryl Gamboa Date of Service: 10/25/16 IV DIPYRIDAMOLE INFUSED: 30 mg IV AMINOPHYLLINE INFUSED: 125 mg PATIENT WEIGHT: 125 lbs INTERPRETATION: The patient's baseline EKG showed an AV paced rhythm at 60 BPM. Baseline B/P 132/70. The patient received 30 mg of dipyridamole infused intravenously over a 4 minute period. TC-99M or Myoview was injected after dipyridamole infusion. The patient tolerated the infusion well. There were no EKG changes seen following pharmacologic infusion. Arrhythmias: None IMPRESSION: The test was supervised by the interpreting Aluminum Siding Mechanic, who was in attendance during the entire test. No EKG evidence of stress induced myocardial ischemia. See separately dictated Nuclear Report.
== END 2016-10-25 18:20 ==
LOC: ENRESERVTM → ENRESERVDT → ERH 10:21 → ERHI 12:49 → 1NO 12:49 → ENPENDDIS 12:49 → ERHI 12:49 → 1NO 16:50
PROVIDERS: Emergency Medicine; Internal Medicine; ADMIT Internal Medicine Interventional Cardiology
DX: R07.9 Chest pain, unspecified (principal); I48.91 Unspecified atrial fibrillation; Z95.0 Presence of cardiac pacemaker; I10 Essential (primary) hypertension; E78.5 Hyperlipidemia, unspecified; I45.10 Unspecified right bundle-branch block; E03.9 Hypothyroidism, unspecified; M19.90 Unspecified osteoarthritis, unspecified site; K21.9 Gastro-esophageal reflux disease without esophagitis; Z86.73 Personal history of transient ischemic attack (TIA), and cerebral infarction without residual deficits
CPT/HCPCS: 6020; 36415; 78452; 82436; 93005; 93010; 93016; 93017; 93306; 96374; 96375; A9502; G0378; J1245; J1644; J3490

== ENCOUNTER 2017-09-07 13:53 | Inpatient (IN) | payer OTHER, MEDICARE ==
[~2017-09-07] VITALS: Ht 157.5 cm; Wt 59.0 kg
[~2017-09-07 13:53] MED LIST changes: +AMLODIPINE BESY10 M1 PO; +ATORVASTATIN CA40 M1 PO; +ATORVASTATIN CA80 M1 PO; +CLONIDINE1 EAC1 TOP; +HYDROCHLOROTHIA25 M1 PO; +PLAVIX75 M1 PO
--- NOTE | 2017-09-07 15:06 | ED INFLUENZA/URI COMPLAINT ---
"History of Present Illness General Chief Complaint: Upper Respiratory Sx/Fever Stated Complaint: URI Source: patient, family Exam Limitations: no limitations Vital Signs & Intake/Output Vital Signs & Intake/Output Vital Signs Date Time Temp Pulse Resp B/P B/P Pulse O2 O2 Flow FiO2 Mean Ox Delivery Rate 09/07 1548 89 09/07 1415 99.3 83 18 123/65 93 Room Air Allergies Coded Allergies: simvastatin (MUSCLE ACHES 06/11/16) Reconcile Medications Amlodipine Besylate 10 MG TABLET 1 TAB PO DAILY BP (Reported) Atorvastatin Calcium 40 MG TABLET 1 TAB PO DAILY HEART HEALTH Clonidine 0.2 MG/24 HOUR PATCH.TDWK 1 PAT TOP QW BP (Reported) EVERY FRIDAY Clopidogrel Bisulfate (Plavix) 75 MG TABLET 75 MG PO DAILY ANTI-PLATELET Esomeprazole (Nexium) 40 MG CAPSULE.DR 1 CAP PO BID GERD Hydrochlorothiazide 25 MG TABLET 1 TAB PO DAILY BP (Reported) Levothyroxine Sodium 50 MCG TABLET 1 TAB PO DAILY hypothyroidism (Reported) Losartan (Cozaar) 100 MG TABLET 100 MG PO DAILY hypertension Metoprolol Tartrate (Lopressor) 50 MG TABLET 1 TAB PO BID BP (Reported) Triage Note: PT TO ED FOR WORSENING COUGH AND WORSENING WEAKNESS OVER PAST WEEK, PT SAW PCP WHO TOLD HER SHE HAD THE FLU EARLIER IN WEEK, SAW [facility] TODAY SHE HAS NOT FELT SHE HAS IMPROVED. HX OF PULMONARY FIBROSIS, NORMAL 02 SAT 90-92%, PRN USE OF HOME O2, REPORTING SHE HAS BEEN USING IT MORE THAN NORMAL THIS WEEK, ALSO REPORTING LOW GRADE FEVERS. Triage Nurses Notes Reviewed? yes Onset: Gradual Duration: day(s): (6) Timing: remote history Severity: severe Severity Numbers: 10 Prior Episodes/Possible Cause: occassional episodes No Modifying Factors: none Associated Symptoms: cough HPI: Is an 87-year-old female with history of A. fib, hypertension, hyperlipidemia, pacemaker placed with chief complaint of generalized malaise, weakness, tactile fevers and intermittent nonproductive cough. Symptoms started 6 days ago. Patient reports that her doctor told her it was likely influenza and that she should rest. Symptoms persisted. She was not prescribed Tamiflu. Symptoms worsened over the past couple days that she decided to go to the urgent care today. She did test positive for influenza. They did a chest x-ray were concerning for pneumonia and sent her into the emergency department for evaluation. Patient reports that she's had decreased by mouth intake over the past 6 days. Her legs have been increasingly weak, making it difficult to move about the house and do her daily activities. Denies any sick contacts or recent travel. Denies any abdominal pain diarrhea. No nausea or vomiting. Has HAD shortness of breath with coughing. (Taya Bello) Past History Travel History Traveled to [place] past 21 day No Medical History Any Pertinent Medical History? 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: NONE Other Medical Hx: Hiatal Hernia Heart Block diverticulitis s/p colostomy with reversal paroxysmal atrial fibrillation HTN (HYPERTENSION) (401.9 | I10) PACEMAKER (V45.01 | Z95.0) Hypothyroidism colonovaginal fistula s/p repair Osteoarthritis Cholelithiasis aspiration pneumonitis RBBB (426.4 | I45.10) Arpita fundoplication CVA (CEREBRAL VASCULAR ACCIDENT) (434.91 | I63.9) SYNCOPE (780.2 | R55) DYSLIPIDEMIA (272.4 | E78.5) History of MRSA: No History of VRE: No History of CDIFF: No Influenza Vaccine: 04/13/16 Surgical History Surgical History: Arpita fundoplication colonovaginal fistula s/p repair Psychosocial History Who do you live with Spouse Services at Home Oxygen What is your primary language Lebanese Tobacco Use: Never used ETOH Use: denies use Illicit Drug Use: denies illicit drug use Family History Family History, If Any: Relation not specified for: *No pertinent family history Hx Contributory? No (Taya Bello) Review of Systems Review of Systems Constitutional: Reports: see HPI, chills, fever, malaise, weakness. Comments Review of systems: See HPI, All other systems negative. Constitutional, no weight loss HEENT: No visual changes no sore throat Cardiovascular: No chest pain ,palpitation , orthopnea or ankle swelling Skin, no jaundice no rashes Respiratory: No hemoptysis GI: No nausea no vomiting : No dysuria No hematuria Muscle skeletal: no back pain, no neck pain, Neurologic: No numbness no confusion NO HEADACHES Psych: No stress anxiety or depression,. Heme/endocrine: No bruising no bleeding no polyuria or polydipsia Immunology: No splenectomy or history of AIDS (Taya Bello) Physical Exam Physical Exam General Appearance: well developed/nourished, no apparent distress, alert, awake , comfortable Ears, Nose, Throat: nasal congestion Comments: Well-developed well-nourished person in no acute distress HEENT: extraocular motion intact, no nystagmus. Pupils equally round and reactive to light and accommodation. Nose is atraumatic. External auditory canal and Tympanic membranes clear. Pharynx normal. No swelling or edema. Neck: Supple, no lymphadenopathy, normal range of motion without pain or tenderness Back: Nontender Cardiovascular: Regular rate and rhythms Respiratory: Chest nontender. No respiratory distress.breath sounds DIMINISHED to auscultation bilaterally, SCANT WHEEZING NOTED THROUGHOUT, REACTIVE COUGH DURING EXAM. Abdomen: Soft, nontender nondistended, no appreciable organomegaly. Normal bowel sounds. No ascites, no rebound or guarding. Extremity: No edema, no calf tenderness to palpation, normal and equal pulses. Muscular strength is 4 out of 5 while seated on the stretcher in all extremities. Pile Fabric Knitter strength is equal and symmetric bilaterally. Neuro: Alert oriented x3, motor sensory normal, cranial nerves II through XII grossly intact. Skin: No appreciable rash on exposed skin, skin is warm and dry. Psych: Mood and affect is normal, memory and judgment is normal. Core Measures Sepsis Present: No Sepsis Focused Exam Completed? No (Taya Bello) Progress Differential Diagnosis: influenza, pneumonia, pharyngitis, sinusitis, BRONCHITIS Plan of Care: Orders Procedure Date/time Status Heart Healthy Diet 09/08 B Active CBC WITHOUT DIFFERENTIAL 09/08 06 Active BASIC ELECTROLYTES PLUS BUN&CR 09/08 06 Active LACTIC ACID 09/07 1805 Active ED Holding Orders 09/07 170 Active Admit to inpatient 09/07 170 Active Vital Signs 09/07 170 Active Code Status 09/07 1702 Active Patient Data 09/07 1658 Active BLOOD CULTURE 09/07 1505 Active LACTIC ACID 09/07 1505 Complete COMPREHENSIVE METABOLIC PANEL 09/07 1505 Complete CBC WITHOUT DIFFERENTIAL 09/07 1505 Complete EKG 09/07 1505 Active RAPID VIRAL INFLUENZA A 09/07 1402 Complete VIRAL CULTURE 09/07 1402 Active Current Medications Sig/Norman Start time Last Medication Dose Stop Time Status Admin Oseltamivir Phosphate 30 MG ONCE ONE 09/07 1700 CAN (Tamiflu) 09/07 1701 Oseltamivir Phosphate 30 MG BID 09/07 1700 AC (Tamiflu) 09/11 1659 Oseltamivir Phosphate 75 MG ONCE ONE 09/07 1645 CAN (Tamiflu 75MG) 09/07 1646 Sodium Chloride 1,000 ML BOLUS ONE 09/07 1630 AC 09/07 (Normal Saline 0.9%) 09/07 1829 1629 Laboratory Tests 09/07/17 1528: Anion Gap 15, Estimated GFR 30 L, BUN/Creatinine Ratio 21.9, Glucose 91, Lactic Acid 1.2, Calcium 9.3, Total Bilirubin 0.8, AST 79 H, ALT 72 H, Alkaline Phosphatase 110, Total Protein 7.3, Albumin 4.2, Globulin 3.1, Albumin/Globulin Ratio 1.4, CBC w Diff NO MAN DIFF REQ, RBC 4.24, MCV 85.4, MCH 29.0, MCHC 33.9, RDW 16.4 H, MPV 7.3 L, Gran % 64.4, Lymphocytes % 22.8, Monocytes % 11.0 H, Eosinophils % 1.3, Basophils % 0.5, Absolute Granulocytes 2.1, Absolute Lymphocytes 0.7 L, Absolute Monocytes 0.4, Absolute Eosinophils 0, Absolute Basophils 0 09/07/17 1402: Virus Culture Pending Microbiology 09/07 1628 BLOOD: Blood Culture - RECD 09/07 1601 BLOOD: Blood Culture - RECD 09/07 1407 NASOPHARYN: Influenza Virus A & B Rapid Smear - COMP INFLUENZA TYPE A 09/07/2017 4:55:13 PMPatient is well-appearing, oxygen saturation does desaturate to 89% also on the stretcher. Patient placed on 1 L nasal cannula and it goes up to 93/94. Patient feeling improved after first breathing treatment. The positive influenza. No obvious signs of pneumonia on x-ray. No elevation in white blood cell count and lactic acid is within normal range. Patient does show signs of slight dehydration with a bump and BUN and creatinine. IV fluids initiated. Patient also has bump in LFTs and decrease in white blood cell count which could be indicative of viral syndrome. Patient will be started on Tamiflu despite length of symptoms. His serial breathing treatments and titrate patient off O2. Patient will be admitted for influenza, hypoxia and dehydration. D/W with Dr. Mor Santoyo, DO and he agrees with plan. Family is agreeable to plan as well. Diagnostic Imaging: Viewed by Me: Radiology Read. Discussed w/RAD: Radiology Read. Radiology Impression: PATIENT: MANUEL CHEN PRESENT AGE: 87 PATIENT ACCOUNT NO: [id number] : [birth year] LOCATION: [facility] ORDERING PHYSICIAN: Taya LITTLE SERVICE DATE: 09/07/17276 EXAM TYPE: RAD - XRY-CHEST XRAY, TWO VIEWS EXAMINATION: XR CHEST CLINICAL INFORMATION : Fever, cough COMPARISON: CT chest 03/18/2017, 10/24/2016 TECHNIQUE: 2 views of the chest were obtained. FINDINGS: A dual-lead pacemaker projects over the right upper chest with leads unchanged in position compared to prior studies. The cardiac size remains mildly enlarged. The mediastinal contours are stable. Moderate biapical pleural-parenchymal thickening is unchanged. There is diffuse prominence of interstitial markings and coarsening of the lung markings particularly at the lung bases. There may be honeycombing at the lung bases. These findings are much better delineated on the recent CT of the chest of 03/18. There is no convincing new superimposed consolidation or effusion. There is relative flattening of the hemidiaphragms. Surgical clips are noted in the right upper quadrant. IMPRESSION: Chronic bibasilar lung changes most likely related to interstitial lung disease. This is better characterized on CT. No definite new superimposed findings. DICTATED BY: Starla Hamilton MD DATE/TIME DICTATED:09/07/171518 MAIL CALLER:CLAUDIA DATE/TIME TRANSCRIBED:1518 CONFIDENTIAL, DO NOT COPY WITHOUT APPROPRIATE AUTHORIZATION. < Electronically signed in Other Vendor System> SIGNED BY: Starla Hamilton MD [id number] Initial ED EKG: ATRIAL SENSED VENTRICULAR PACED RHYTHM AT 78 BPM (Taya Bello) Departure Departure Time of Disposition: 1624 Disposition: STILL A PATIENT Condition: Stable Clinical Impression Primary Impression: Influenza Secondary Impressions: Acute kidney injury, Hypoxia Referrals: Mara SANTOS,Jossy Montelongo (PCP/Family) Departure Forms: Customer Survey General Discharge Information Admission Note Spoke With: Behzad Reynolds MD Documentation of Exam: Documentation of any treatments & extenuating circumstances including Concerns Regarding Discharge (functional status, medication knowledge or non-compliance, living conditions, etc.) that warrant an admission rather than observation: PT REQUIRING SUPPLEMENTAL 02, IV HYDRATION, PULMONOLGY CONSULT, CONDSIDER CT CHEST TO RULE OUT DEVELOPING PNEUMONIA IF SYMPTOMS DO NOT IMPROVE. SERIAL BREATHING TX. (Taya Bello) PA/LIGHT TECHNICIAN Co-Sign Statement Statement: ED Attending supervision documentation- [X] I saw and evaluated the patient. I have also reviewed all the pertinent lab results and diagnostic results. I agree with the findings and the plan of care as documented in the PA's/LIGHT TECHNICIAN's documentation. [] I have reviewed the ED Record and agree with the PA's/LIGHT TECHNICIAN's documentation. [] Additions or exceptions (if any) to the PAs/LIGHT TECHNICIAN's note and plan are summarized below: [] (Mor Santoyo DO) Critical Care Note Critical Care Note Critical Care Time: 30-74 min (Taya Bello)"
--- NOTE | 2017-09-07 15:26 | RADIOLOGY REPORT ---
EXAMINATION: XR CHEST CLINICAL INFORMATION: Fever, cough COMPARISON: CT chest 03/18/2017, 10/24/2016 TECHNIQUE: 2 views of the chest were obtained. FINDINGS: A dual-lead pacemaker projects over the right upper chest with leads unchanged in position compared to prior studies. The cardiac size remains mildly enlarged. The mediastinal contours are stable. Moderate biapical pleural-parenchymal thickening is unchanged. There is diffuse prominence of interstitial markings and coarsening of the lung markings particularly at the lung bases. There may be honeycombing at the lung bases. These findings are much better delineated on the recent CT of the chest of 03/18/2017. There is no convincing new superimposed consolidation or effusion. There is relative flattening of the hemidiaphragms. Surgical clips are noted in the right upper quadrant. IMPRESSION: Chronic bibasilar lung changes most likely related to interstitial lung disease. This is better characterized on CT. No definite new superimposed findings.
[2017-09-07 15:41] LABS: ABSOLUTE BASOPHIL COUNT 0 /CUMM (0.0-0.2); ABSOLUTE EOSINOPHIL COUNT 0 /CUMM (0.0-0.7); ABSOLUTE GRANULOCYTE CT 2.1 /CUMM (1.4-6.5); ABSOLUTE LYMPH COUNT 0.7 /CUMM (1.2-3.4); ABSOLUTE MONOCYTE COUNT 0.4 /CUMM (0.10-0.60); BASOPHIL % 0.5 % (0.0-2.0); EOSINOPHIL % 1.3 % (0-5); GRANULOCYTE % 64.4 % (42.2-75.2); HEMATOCRIT 36.2 % (37-47); MEAN CORPUSCULAR HGB CONC 33.9 G/DL (33.0-37.0); MEAN CORPUSCULAR VOLUME 85.4 FL (81.0-99.0); MEAN PLATELET VOLUME 7.3 FL (7.4-10.4); PLATELET COUNT 319 /CUMM (130-400); RBC DISTRIBUTION WIDTH 16.4 % (11.5-14.5); RED BLOOD CELL CT 4.24 /CUMM (4.20-5.40); WHITE BLOOD CELL COUNT 3.3 /CUMM (4.8-10.8)
--- NOTE | 2017-09-07 16:54 | History & Physical ---
"Jono Michael MD,[facility] 09/07/17 9054: General Information and HPI MD Statement: I have seen and personally examined MANUEL MCKNIGHT and documented this H&P. The patient is a 87 year old F who presented with a patient stated chief complaint of []. History of Present Illness: Patient is an 87 y F with PMH of hypertension, hypothyroidism, bradycardia and complete heart block (? A. 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 Patient noted that she since 6 days ago she was feeling more weak, had cough, low grade fever. She also had worsening of SOB and needed to use her PRN o2 at home more often. She took Robitussin but it didn't help with symptoms. The cough was initially dry but started to be productive of yellowish sputum since 2 days ago. Her symptoms worsened over the last couple of days, today she visited walking clinic, she was tested for flu which was positive, according to patient CXR was done which was concerning for pneumonia, and she was referred to Hospital. She also reported a pressure-like chest pain 2 days ago chest pain (which is chronic), she had loose bowel movements and reported decreased by mouth intake. She denied any sick contact. Patient was last admitted to [facility] in 03/2016 to rule out ACS. The last Echo was from 10/28 with EF of 65% with impaired LV relaxation. She denies alcohol intake or smoking, lives in home with and ambulates with lamb. 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 heart block s /p permanent pacemaker Gastrointestinal: diverticulitis (with colostomy reversal), hiatal hernia, COLOSTOMY (REVERSED) Arpita fundoplication colonovaginal fistula s/p surgical repair Hepatic: cholelithiasis Renal: NONE Musculoskeletal: osteoarthritis Psychiatric: NONE Endocrine: hypothyroidism Blood Disorders: NONE Cancer(s): NONE TRAY DELIVERY AIDE/Reproductive: NONE Other Medical Hx: Hiatal Hernia Heart Block diverticulitis s/p colostomy with reversal paroxysmal atrial fibrillation HTN (HYPERTENSION) (401.9 | I10) PACEMAKER (V45.01 | Z95.0) Hypothyroidism colonovaginal fistula s/p repair Osteoarthritis Cholelithiasis aspiration pneumonitis RBBB (426.4 | I45.10) Arpita fundoplication CVA (CEREBRAL VASCULAR ACCIDENT) (434.91 | I63.9) SYNCOPE (780.2 | R55) DYSLIPIDEMIA (272.4 | E78.5) History of MRSA: No History of VRE: No History of CDIFF: No Influenza Vaccine: 04/13/16 Surgical History Surgical History: Arpita fundoplication colonovaginal fistula s/p repair Past Family/Social History Family History Relations & Conditions if any Relation not specified for: *No pertinent family history Psychosocial History Who Do You Live With? spouse Services at Home: Oxygen Primary Language: Kyrgyz ETOH Use: denies use Illicit Drug Use: denies illicit drug use Living Will? yes Functional Ability ADLs Independent: dressing, eating, toileting, bathing. Ambulation: cane IADLs Independent: shopping, housework, finances, food prep, telephone, transportation , medication admin. Review of Systems Review of Systems Constitutional: Reports: see HPI. Exam & Diagnostic Data Last 24 Hrs of Vital Signs/I&O Vital Signs Date Time Temp Pulse Resp B/P B/P Pulse O2 O2 Flow FiO2 Mean Ox Delivery Rate 09/08 0644 97.7 51 20 142/84 97 09/08 0000 93 Nasal 1.5L Cannula 09/07 2154 63 100/60 09/078 98.1 63 20 100/60 93 Room Air 09/07 2145 96 Nasal 1.5L Cannula 09/07 2138 Nasal 1.5L Cannula 09/07 181 Nasal 1.0L Cannula 09/07 1815 98.3 98 20 125/61 95 Nasal 1.0L Cannula 09/07 1801 96 18 126/58 93 Nasal 1.0L Cannula 09/07 1717 90 Nasal 1.0L Cannula 09/07 1548 89 09/07 1415 99.3 83 18 123/65 93 Room Air Intake & Output 09/08 0800 09/08 0000 09/07 1600 Intake Total 1000 0 Output Total 250 300 Balance -250 700 0 Intake, IV 1000 Intake, Oral 0 Output, Urine 250 300 Patient 130 lb Weight Weight Reported by Patient Measurement Method Physical Exam General Appearance Alert, Oriented X3, Cooperative, No Acute Distress Skin No Significant Lesion Skin Temp/Moisture Exam: Warm/Dry Sepsis Skin Exam (color): Normal for Ethnicity HEENT Atraumatic, EOMI, Mucous Membr. moist/pink Cardiovascular Normal S1, Normal S2, paced Lungs bilateral scattered crackles Abdomen Soft, No Tenderness Neurological Normal Speech Last 24 Hrs of Labs/Pete: Laboratory Tests 09/08/17 0122: Lactic Acid 1.8 09/07/177: Lactic Acid 2.9 H 09/07/172007: Lactic Acid 3.1 H 09/07/17 1528: Anion Gap 15, Estimated GFR 30 L, BUN/Creatinine Ratio 21.9, Glucose 91, Lactic Acid 1.2, Calcium 9.3, Total Bilirubin 0.8, AST 79 H, ALT 72 H, Alkaline Phosphatase 110, Troponin I 0.02, Total Protein 7.3, Albumin 4.2, Globulin 3.1, Albumin/Globulin Ratio 1.4, CBC w Diff NO MAN DIFF REQ, RBC 4.24, MCV 85.4, MCH 29.0, MCHC 33.9, RDW 16.4 H, MPV 7.3 L, Gran % 64.4, Lymphocytes % 22.8, Monocytes % 11.0 H, Eosinophils % 1.3, Basophils % 0.5, Absolute Granulocytes 2.1, Absolute Lymphocytes 0.7 L, Absolute Monocytes 0.4, Absolute Eosinophils 0 , Absolute Basophils 0 09/07/17 1402: Virus Culture Pending Microbiology 09/07 2123 URINE ROUT: Urine Culture - COLB 09/07 1628 BLOOD: Blood Culture - RECD 09/07 1601 BLOOD: Blood Culture - RECD 09/07 1407 NASOPHARYN: Influenza Virus A & B Rapid Smear - COMP INFLUENZA TYPE A Assessment/Plan Assessment: 87 y F with presented to the ED for evaluation of cough and weakness. tested positive for flu PMH: hypertension, hypothyroidism, bradycardia and complete heart block (? A. 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 This is better characterized on CT. No definite new superimposed findings. Patient was admitted to GM floor for management of following conditions: Respiratory distress, fever, cough FLU Patient is on oxygen at home when necessary, however here saturating well in 1 L. Patient was positive for flu. Chest x-ray was not indicative of pneumonia but rather chronic fibrosis we will hold off on antibiotics for now. Despite this more than 48 hours from onset of symptoms, however we will start for levo considering comorbidities -Admit to general medicine floor -Vital sign, O2 supplements as needed -Start Tamiflu -TRC nebs -Robitussin when necessary -Droplet isolation JD Increased BUN creatinine ratio indicating prerenal acute kidney injury. 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 Since this is chronic we will look for etiologies on risk factors of alcohol viral hepatitis or Bustos. -Continue to monitor Chronic medical conditions, CVA, hypothyroidism, cardiac problems Continue home medication -Plavix, Lipitor, Synthroid, Tigan, Lopressor DVT prophylaxis, Alps and heparin DNR/DNI Heart healthy diet As Ranked By This Provider Problem List: 1. Influenza Core Measures/Misc (03/30) Acute Coronary Syndrome ACS Diagnosis: No Congestive Heart Failure Congestive Heart Failure Diagnosis No Cerebrovascular Accident CVA/TIA Diagnosis: No VTE (View Protocol) VTE Risk Factors Age>40 No Mechanical VTE Prophylaxis d/t N/A MechProphylax Ordered No VTE Pharm Prophylaxis d/t NA PharmProphylax ordered Sepsis (View protocol) Sepsis Present: No Behzad Reynolds MD 09/07/17 1900: Attending Review Statement Attending Statement Attending MD Statement: examined this patient, discuss w/resident/PA/MANAGER DRUG SAFETY, agreed w/resident/PA/MANAGER DRUG SAFETY, discussed with nursing Attending Assessment/Plan: Ms. Mcknight is a 87-year-old female with history of hypertension and hypothyroidism, third-degree heart block status post dual-chamber MRA safe pacemaker, history of pulmonary fibrosis follows up with Dr. Hale presented to the ED with complaints of cough and weakness. Patient has also been having nonproductive cough low-grade fever and malaise, few loose bowel movements in the last few days. Patient's by mouth intake has also been poor in the last 1 week. Apparently patient was told patient has flu however mentioned that she took only mucinex. Chest x-ray showed Chronic bibasilar lung changes most likely related to interstitial lung disease. This is better characterized on CT. No definite new superimposed findings Patient found to have positive flu here initiated on Tamiflu. We'll continue with gentle hydration for mild JD. Minimal transaminitis. Will need physical therapy evaluation. Leigh Matamoros 09/07/172042: Resident Review Statement Resident Statement: examined this patient, discussed with internal audit director, agreed with internal audit director, reviewed images, amended to note Other Findings: 88-year-old lady with past medical history of hypertension, hypothyroidism, cardiac arrhythmia status post pacemaker, pulmonary fibrosis on when necessary O2, CVA on Plavix came to the hospital with chief complaint of cough and weakness. Patient reported that since couple of days ago he had nonproductive cough with mild fever and shortness appears requiring to use more oxygen and weakness. Last week she was positive for flu but did not get any Tamiflu per operative mean of her PCP, and her symptoms worsened. She also had an episode of mild chest pain without any sweating, nausea, vomiting couple of days ago. She also reports of couple of loose bowel movements last few days as well. Vitals and ED were stable and patient was on 1 L oxygen Physical exam as above WBC 3.3, creatinine 1.6(baseline 1.3), lactic acid 1.2, AST 79, ALT 72, troponin 0.02 CXR Chronic bibasilar lung changes most likely related to interstitial lung disease. This is better characterized on CT. No definite new superimposed findings. Assessment Generalized weakness and coughing due to influenza Mild JD Transaminitis History of CVA History of hypothyroidism Plan Start the patient on Tamiflu 30 mg twice a day per recommendation of pharmacy due to low creatinine clearance TRC nebs when necessary we will call for Dr. Geoffrey in the morning Continue Plavix Continue levothyroxine Continue statin Robitussin when necessary for cough IV hydration with 1 more bag of normal saline Metoprolol 50 twice a day PT evaluation in the morning Droplet isolation DNR/DNI, DVT prophylaxis mechanical and subcutaneous heparin, Tylenol for fever and pain, heart healthy diet Scott Andrade 09/11/17 1433: General Information and HPI Allergies/Medications Home Med list Amlodipine Besylate 10 MG TABLET 1 TAB PO DAILY BP (Reported) Atorvastatin Calcium 10 MG TABLET 1 TAB PO DAILY CHOLESTEROL (Reported) Clopidogrel Bisulfate (Plavix) 75 MG TABLET 75 MG PO DAILY ANTI-PLATELET Esomeprazole (Nexium) 40 MG CAPSULE.DR 1 CAP PO BID GERD Guaifenesin 100 MG/5 ML LIQUID 10 ML PO Q4P PRN COUGH . Hydrochlorothiazide 25 MG TABLET 1 TAB PO DAILY BP (Reported) Levothyroxine Sodium 50 MCG TABLET 1 TAB PO DAILY hypothyroidism (Reported) Losartan (Cozaar) 100 MG TABLET 100 MG PO DAILY hypertension Metoprolol Tartrate (Lopressor) 50 MG TABLET 1 TAB PO BID BP (Reported) Oseltamivir Phosphate (Tamiflu) 30 MG CAPSULE 30 MG PO BID LUNG HEALTH . Attending MD Review Statement Attending Statement Attending Assessment/Plan: Pt was seen by Dr Behzad Reynolds."
[2017-09-07] MEDS ORDERED: ATORVASTATIN CA10 M1 PO (17:55)
[2017-09-07 18:16] VITALS: BP 125/61
[2017-09-07 21:48] VITALS: BP 100/60
--- NOTE | 2017-09-08 06:39 | PN- Housestaff ---
Jono Michael MD,[facility] 09/08/17 0639: Subjective Follow-up For: Respiratory insufficiency Flu Subjective: Patient visited today, was lying in bed comfortably in no acute distress, was alert and oriented. had respiratory distress, saturating well with O2 supplement. Reported no change in complaints. No fever or chills, no chest pain, no other events. Review of Systems Constitutional: Reports: see HPI. Objective Last 24 Hrs of Vital Signs/I&O Vital Signs Date Time Temp Pulse Resp B/P B/P Pulse O2 O2 Flow FiO2 Mean Ox Delivery Rate 09/08 1419 96 Nasal 1.5L Cannula 09/08 0938 97.7 142/84 09/08 0800 93 Nasal 1.5L Cannula 09/08 0644 97.7 51 20 142/84 97 09/08 0000 93 Nasal 1.5L Cannula 09/07 2155 63 100/60 09/07 2148 98.1 63 20 100/60 93 Room Air 09/07 2145 96 Nasal 1.5L Cannula 09/07 2139 Nasal 1.5L Cannula 09/07 1816 Nasal 1.0L Cannula 09/07 1816 98.3 98 20 125/61 95 Nasal 1.0L Cannula 09/07 1801 96 18 126/58 93 Nasal 1.0L Cannula 09/07 1717 90 Nasal 1.0L Cannula 09/07 1548 89 Intake & Output 09/08 1600 09/08 0800 09/08 0000 Intake Total 085 285 2569 Output Total 550 250 300 Balance 50 -50 700 Intake, IV 1000 Intake, Oral 600 200 Output, Urine 550 250 300 Physical Exam General Appearance: Alert, Oriented X3, Cooperative, No Acute Distress Skin Temp/Moisture Exam: Warm/Dry Sepsis Skin Exam (color): Normal for Ethnicity HEENT: Atraumatic, EOMI, Mucous Membr. moist/pink Cardiovascular: Normal S1, Normal S2 Lungs: Crackles, Abdomen: Soft, No Tenderness Current Medications: Current Medications Sig/Norman Start time Last Medication Dose Route Stop Time Status Admin Acetaminophen 650 MG Q6P PRN 09/07 1845 AC 09/07 PO 1854 Albuterol Sulfate 3 ML Q4P PRN 09/07 2200 AC INH Albuterol Sulfate 3 ML ONCE ONE 09/07 1630 DC 09/07 INH 09/07 1631 1715 Albuterol Sulfate 3 ML ONCE ONE 09/07 1530 DC 09/07 INH 09/07 1531 1547 Atorvastatin Calcium 10 MG DAILY 09/08 1000 AC 09/08 PO 0938 Calcium Carbonate 500 MG ONCE ONE 09/07 1930 DC 09/07 PO 09/07 1931 1927 Clopidogrel Bisulfate 75 MG DAILY 09/08 1000 AC 09/08 PO 0939 Guaifenesin 10 ML Q4P PRN 09/07 1845 AC 09/07 PO 1854 Heparin Sodium 5,000 UNIT Q8 09/07 2200 AC 09/08 (Porcine) SC 1349 Ipratropium [place] 2.5 ML ONCE ONE 09/07 1530 DC 09/07 INH 09/07 1531 1547 Levothyroxine Sodium 0.05 MG DAILY AC 09/08 0700 AC PO Methylprednisolone 0 .STK-MED ONE 09/07 1640 DC .ROUTE Methylprednisolone 125 MG ONCE ONE 09/07 1630 DC 09/07 IV 09/07 1631 1638 Metoprolol Tartrate 50 MG BID 09/07 2200 AC 09/08 PO 0938 Omeprazole 40 MG DAILY AC 09/08 1453 AC PO Oseltamivir Phosphate 30 MG BID 09/08 1000 AC 09/08 PO 09/12 1001 0939 Oseltamivir Phosphate 30 MG ONCE ONE 09/07 1700 CAN PO 09/07 1701 Oseltamivir Phosphate 30 MG BID 09/07 1700 DC 09/07 PO 09/11 1659 1732 Oseltamivir Phosphate 75 MG ONCE ONE 09/07 1645 CAN PO 09/07 1646 Sodium Chloride 1,000 ML Q13H 09/07 1830 DC 09/07 IV 09/08 0429 1855 Sodium Chloride 1,000 ML BOLUS ONE 09/07 1630 DC 09/07 IV 09/07 1829 1629 Trimethobenzamide HCl 200 MG Q8P PRN 09/08 0315 AC 09/08 IM 0615 Trimethobenzamide HCl 200 MG ONCE ONE 09/07 2115 DC 09/07 IM 09/07 211 2107 Last 24 Hrs of Lab/Pete Results Last 24 Hrs of Labs/Mics: Laboratory Tests 09/08/17 0750: Anion Gap 12, Estimated GFR 39 L, BUN/Creatinine Ratio 22.3, CBC w Diff NO MAN DIFF REQ, RBC 3.67 L, MCV 85.3, MCH 29.0, MCHC 34.0, RDW 16.1 H, MPV 7.5, Gran % 70.7, Lymphocytes % 22.7, Monocytes % 6.4, Eosinophils % 0, Basophils % 0.2, Absolute Granulocytes 1.5, Absolute Lymphocytes 0.5 L, Absolute Monocytes 0.1, Absolute Eosinophils 0, Absolute Basophils 0 09/08/17 0122: Lactic Acid 1.8 09/07/17 2247: Lactic Acid 2.9 H 09/07/172123: Urine Color Cancelled, Urine Clarity Cancelled, Urine pH Cancelled, Ur Specific [place] Cancelled, Urine Protein Cancelled, Urine Ketones Cancelled, Urine Nitrite Cancelled, Urine Bilirubin Cancelled, Urine Urobilinogen Cancelled, Ur Leukocyte Esterase Cancelled, Ur Microscopic Cancelled, Urine Hemoglobin Cancelled, Urine Glucose Cancelled 09/07/172007: Lactic Acid 3.1 H Microbiology 09/08 1453 LOWER RESP: Respiratory Culture - ORD 09/08 1453 LOWER RESP: Gram Stain - ORD 09/07 2123 URINE ROUT: Urine Culture - CAN Cancelled: SPECIMEN NOT RECEIVED IN LABORATORY 09/07 1628 BLOOD: Blood Culture - RES 09/07 1601 BLOOD: Blood Culture - RES Assessment/Plan Assessment: 87 y F with presented to the ED for evaluation of cough and weakness. tested positive for flu PMH: hypertension, hypothyroidism, bradycardia and complete heart block (? A. 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 This is better characterized on CT. No definite new superimposed findings. Patient was admitted to GM floor for management of following conditions: Respiratory distress, fever, cough FLU Patient is on oxygen at home when necessary, however here saturating well in 1 L. Patient was positive for flu. Chest x-ray was not indicative of pneumonia but rather chronic fibrosis we will hold off on antibiotics for now. Despite this more than 48 hours from onset of symptoms, however we will start for levo considering comorbidities -Admit to general medicine floor -Vital sign, O2 supplements as needed -continue Tamiflu -TR nebs -Robitussin when necessary -Droplet isolation JD Increased BUN creatinine ratio indicating prerenal acute kidney injury. 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 Since this is chronic we will look for etiologies on risk factors of alcohol viral hepatitis or Bustos. -Continue to monitor Chronic medical conditions, CVA, hypothyroidism, cardiac problems Continue home medication -Plavix, Lipitor, Synthroid, Tigan, Lopressor DVT prophylaxis, Alps and heparin DNR/DNI Heart healthy diet Problem List: 1. Influenza Pain Ratin Pain Location: None Pain Goal: Pain 4 or less Pain Plan: Continue current plan Tomorrow's Labs & Rationales: CBC BEp EdenDenny [email or web address] 09/08/17 1329: Attending MD Review Statement Attending Statement Attending MD Statement: examined this patient, discuss w/resident/PA/POLY PACKER AND HEAT SEALER, agreed w/resident/PA/POLY PACKER AND HEAT SEALER, discussed with family, reviewed EMR data (avail), discussed with nursing, discussed with case mgmt, reviewed images, amended to note Attending Assessment/Plan: 87-year-old female with history of hypertension and hypothyroidism, third-degree heart block status post dual-chamber MRA safe pacemaker, history of pulmonary fibrosis follows up with Dr. Hale presented to the ED with complaints of cough and weakness found to have flu related pneumonia and hypoxic respiratroy failure. Continue with Tamiflu. We'll continue with gentle hydration for mild JD with improvement. Pt eval for general physical deconditioning. gi/dvt prophylaxis DNR /DNI.
[2017-09-08 06:44] VITALS: BP 142/84
[2017-09-08 09:08] LABS: ABSOLUTE BASOPHIL COUNT 0 /CUMM (0.0-0.2); ABSOLUTE EOSINOPHIL COUNT 0 /CUMM (0.0-0.7); ABSOLUTE GRANULOCYTE CT 1.5 /CUMM (1.4-6.5); ABSOLUTE LYMPH COUNT 0.5 /CUMM (1.2-3.4); ABSOLUTE MONOCYTE COUNT 0.1 /CUMM (0.10-0.60); BASOPHIL % 0.2 % (0.0-2.0); EOSINOPHIL % 0 % (0-5); GRANULOCYTE % 70.7 % (42.2-75.2); HEMATOCRIT 31.4 % (37-47); MEAN CORPUSCULAR VOLUME 85.3 FL (81.0-99.0); MEAN PLATELET VOLUME 7.5 FL (7.4-10.4); PLATELET COUNT 271 /CUMM (130-400); RBC DISTRIBUTION WIDTH 16.1 % (11.5-14.5); RED BLOOD CELL CT 3.67 /CUMM (4.20-5.40); WHITE BLOOD CELL COUNT 2.2 /CUMM (4.8-10.8)
--- NOTE | 2017-09-08 13:21 | Cons- Pulmonary ---
"General Information and HPI Consulting Request Date of Consult: 09/08/17 Requested By: MED TEAM History of Present Illness: Patient is an 87 y F with PMH of hypertension, hypothyroidism, bradycardia and complete heart block (? A. 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 Patient noted that she since 6 days ago she was feeling more weak, had cough, low grade fever. She also had worsening of SOB and needed to use her PRN o2 at home more often. She took Robitussin but it didn't help with symptoms. The cough was initially dry but started to be productive of yellowish sputum since 2 days ago. Her symptoms worsened over the last couple of days, today she visited walking clinic, she was tested for flu which was positive, according to patient CXR was done which was concerning for pneumonia, and she was referred to Hospital. She also reported a pressure-like chest pain 2 days ago chest pain (which is chronic), she had loose bowel movements and reported decreased by mouth intake. She denied any sick contact. Patient was last admitted to [facility] in 03/2016 to rule out ACS. The last Echo was from 10/28 with EF of 65% with impaired LV relaxation. She denies alcohol intake or smoking, lives in home with and ambulates with cane Now has influenza positive Allergies/Medications Allergies: Coded Allergies: simvastatin (MUSCLE ACHES 06/11/16) Home Med List: Amlodipine Besylate 10 MG TABLET 1 TAB PO DAILY BP (Reported) Atorvastatin Calcium 10 MG TABLET 1 TAB PO DAILY CHOLESTEROL (Reported) Clopidogrel Bisulfate (Plavix) 75 MG TABLET 75 MG PO DAILY ANTI-PLATELET Esomeprazole (Nexium) 40 MG CAPSULE.DR 1 CAP PO BID GERD Hydrochlorothiazide 25 MG TABLET 1 TAB PO DAILY BP (Reported) Levothyroxine Sodium 50 MCG TABLET 1 TAB PO DAILY hypothyroidism (Reported) Losartan (Cozaar) 100 MG TABLET 100 MG PO DAILY hypertension Metoprolol Tartrate (Lopressor) 50 MG TABLET 1 TAB PO BID BP (Reported) Review of Systems Review of Systems Constitutional: Reports: see HPI. 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 heart block s /p permanent pacemaker Respiratory: pulmonary fibrosis Gastrointestinal: diverticulitis (with colostomy reversal), GERD, hiatal hernia, COLOSTOMY (REVERSED) Arpita fundoplication colonovaginal fistula s/p surgical repair Hepatic: cholelithiasis Renal: NONE Musculoskeletal: osteoarthritis Psychiatric: NONE Endocrine: hypothyroidism Blood Disorders: NONE Cancer(s): NONE YEAST PUSHER/Reproductive: NONE Other Medical Hx: Hiatal Hernia Heart Block diverticulitis s/p colostomy with reversal paroxysmal atrial fibrillation HTN (HYPERTENSION) (401.9 | I10) PACEMAKER (V45.01 | Z95.0) Hypothyroidism colonovaginal fistula s/p repair Osteoarthritis Cholelithiasis aspiration pneumonitis RBBB (426.4 | I45.10) Arpita fundoplication CVA (CEREBRAL VASCULAR ACCIDENT) (434.91 | I63.9) SYNCOPE (780.2 | R55) DYSLIPIDEMIA (272.4 | E78.5) Surgical History Surgical History: Arpita fundoplication colonovaginal fistula s/p repair Family History Relations & Conditions If Any: Relation not specified for: *No pertinent family history Psychosocial History Where Do You Live? Home Who Do You Live With? spouse Services at Home: Oxygen Primary Language: Nepalese Smoking Status: Never Smoked ETOH Use: denies use Illicit Drug Use: denies illicit drug use Living Will? yes Functional Ability ADLs Independent: dressing, eating, toileting, bathing. Ambulation: cane IADLs Independent: shopping, housework, finances, food prep, telephone, transportation , medication admin. Exam & Diagnostic Data Last 24 Hrs of Vital Signs/I&O Vital Signs Date Time Temp Pulse Resp B/P B/P Pulse O2 O2 Flow FiO2 Mean Ox Delivery Rate 09/08 0938 97.7 142/84 09/08 0800 93 Nasal 1.5L Cannula 09/08 0644 97.7 51 20 142/84 97 09/08 0000 93 Nasal 1.5L Cannula 09/07 2155 63 100/60 09/07 2148 98.1 63 20 100/60 93 Room Air 09/075 96 Nasal 1.5L Cannula 09/07 2138 Nasal 1.5L Cannula 02/25 1816 Nasal 1.0L Cannula 09/07 181 98.3 98 20 125/61 95 Nasal 1.0L Cannula 09/07 1801 96 18 126/58 93 Nasal 1.0L Cannula 09/07 1717 90 Nasal 1.0L Cannula 09/07 1548 89 09/07 1415 99.3 83 18 123/65 93 Room Air Intake & Output 09/08 1600 09/08 0800 09/08 0000 Intake Total 200 1000 Output Total 250 300 Balance -50 700 Intake, IV 1000 Intake, Oral 200 Output, Urine 250 300 Last 48 Hrs of Labs/Pete: Laboratory Tests 09/08/17 0750: Anion Gap 12, Estimated GFR 39 L, BUN/Creatinine Ratio 22.3, CBC w Diff NO MAN DIFF REQ, RBC 3.67 L, MCV 85.3, MCH 29.0, MCHC 34.0, RDW 16.1 H, MPV 7.5, Gran % 70.7, Lymphocytes % 22.7, Monocytes % 6.4, Eosinophils % 0, Basophils % 0.2, Absolute Granulocytes 1.5, Absolute Lymphocytes 0.5 L, Absolute Monocytes 0.1, Absolute Eosinophils 0, Absolute Basophils 0 09/08/17 0122: Lactic Acid 1.8 09/07/17 2247: Lactic Acid 2.9 H 09/07/17 2124: Urine Color Cancelled, Urine Clarity Cancelled, Urine pH Cancelled, Ur Specific Gregory Cancelled, Urine Protein Cancelled, Urine Ketones Cancelled, Urine Nitrite Cancelled, Urine Bilirubin Cancelled, Urine Urobilinogen Cancelled, Ur Leukocyte Esterase Cancelled, Ur Microscopic Cancelled, Urine Hemoglobin Cancelled, Urine Glucose Cancelled 09/07/172007: Lactic Acid 3.1 H 09/07/17 1528: Anion Gap 15, Estimated GFR 30 L, BUN/Creatinine Ratio 21.9, Glucose 91, Lactic Acid 1.2, Calcium 9.3, Total Bilirubin 0.8, AST 79 H, ALT 72 H, Alkaline Phosphatase 110, Troponin I 0.02, Total Protein 7.3, Albumin 4.2, Globulin 3.1, Albumin/Globulin Ratio 1.4, CBC w Diff NO MAN DIFF REQ, RBC 4.24, MCV 85.4, MCH 29.0, MCHC 33.9, RDW 16.4 H, MPV 7.3 L, Gran % 64.4, Lymphocytes % 22.8, Monocytes % 11.0 H, Eosinophils % 1.3, Basophils % 0.5, Absolute Granulocytes 2.1, Absolute Lymphocytes 0.7 L, Absolute Monocytes 0.4, Absolute Eosinophils 0 , Absolute Basophils 0 09/07/17 1402: Virus Culture Pending Microbiology 09/07 140 NASOPHARYN: Influenza Virus A & B Rapid Smear - COMP INFLUENZA TYPE A Assessment/Plan Impression/Plan: CT 2016 IMPRESSION: Diffuse interstitial lung disease is relatively stable to prior cross-sectional imaging of May 2015. Evaluation of solid pulmonary nodules is limited given extensive underlying lung disease, however, a few subcentimeter pulmonary nodules appear to demonstrate interval enlargement by approximately 1 to 2 mm. Attention on follow-up recommended. DICTATED BY: LEIGHA PRASAD MD DATE/TIME DICTATED:03/19/17 1202 CXR IMPRESSION: Chronic bibasilar lung changes most likely related to interstitial lung disease. This is better characterized on CT. No definite new superimposed findings. DICTATED BY: Starla Hamilton MD DATE/TIME DICTATED:09/07/171518 Physical Exam General Appearance Alert, Oriented X3, Cooperative, No Acute Distress Skin No Significant Lesion Skin Temp/Moisture Exam: Warm/Dry Sepsis Skin Exam (color): Normal for Ethnicity HEENT Atraumatic, EOMI, Mucous Membr. moist/pink Cardiovascular Normal S1, Normal S2, paced Lungs bilateral scattered crackles Abdomen Soft, No Tenderness IMPRESSION PT with hypertension, hypothyroidism, bradycardia and complete heart block (? A. 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, diverticulitis status post perforation status post colostomy with revision 3 years ago, hiatal hernia with GERD, and hyperlipidemia Now with SIg influenza pna with resp failure hypoxic Sig ILD prob NSIP due to chronic hiatal hernia with recurrent aspiration due to gerd Leukopenia due to prob viral infection Hiatal hernia with occ dysphagia Altered lfts to follow - may be due to influenza CKD with mild faustino now back to baseline Previous arrythmia, cva, hypothyroid and htn and hyperlipedemia stable REC Cont tamiflu sputum culture NO need for steroids Nebs prn PO ppi KEep hob up cont all other meds Consult Acknowledgment - Thank you for your consult request."
[2017-09-08 23:14] VITALS: BP 138/84
[2017-09-09 06:18] VITALS: BP 122/68
--- NOTE | 2017-09-09 08:03 | PN- Housestaff ---
Jono Michael MD,Ami 09/09/17 0803: Subjective Follow-up For: Respiratory insufficiency Flu Subjective: Patient visited today, was lying in bed comfortably in no acute distress, was alert and oriented. reported improved breathing. saturating well with O2 supplement. No fever or chills, no chest pain, no other events. Patient was requesting to be discharged as his also was positive for flu. was present at the bedside wearing the mask. Review of Systems Constitutional: Reports: see HPI. Objective Last 24 Hrs of Vital Signs/I&O Vital Signs Date Time Temp Pulse Resp B/P B/P Pulse O2 O2 Flow FiO2 Mean Ox Delivery Rate 09/09 0936 18 93 Room Air Room Air 09/09 0828 68 122/68 09/09 0800 95 Nasal 1.5L Cannula 09/09 0618 97.7 68 22 122/68 95 Room Air 09/09 0000 Nasal 1.0L Cannula 09/08 2314 97.8 55 20 138/84 94 Nasal 1.0L Cannula 09/08 2136 74 148/80 09/08 1950 95 Nasal 1.0L Cannula Intake & Output 09/09 1600 09/09 0800 09/09 0000 Intake Total 800 480 Output Total Balance 800 480 Intake, Oral 800 480 Physical Exam General Appearance: Alert, Oriented X3, Cooperative, No Acute Distress Skin Temp/Moisture Exam: Warm/Dry Sepsis Skin Exam (color): Normal for Ethnicity HEENT: Atraumatic, EOMI, Mucous Membr. moist/pink Cardiovascular: Normal S1, Normal S2 Lungs: Normal Air Movement, fine crackles bilateral Abdomen: Soft, No Tenderness Neurological: Normal Speech, Strength at 5/5 X4 Ext Extremities: No Edema Current Medications: Current Medications Sig/[facility] Start time Last Medication Dose Route Stop Time Status Admin Acetaminophen 650 MG Q6P PRN 09/07 1845 DCD 09/07 PO 1854 Albuterol Sulfate 3 ML Q4P PRN 09/07 2200 DCD INH Atorvastatin Calcium 10 MG DAILY 09/08 1000 DCD 09/09 PO 08 Clopidogrel Bisulfate 75 MG DAILY 09/08 1000 DCD 09/09 PO 08 Guaifenesin 10 ML .STK-MED ONE 09/09 0542 DC PO 09/09 0543 Guaifenesin 10 ML .STK-MED ONE 09/08 2335 DC PO 09/08 2336 Guaifenesin 10 ML Q4P PRN 09/07 1845 DCD 09/08 PO 2336 Heparin Sodium 5,000 UNIT Q8 09/07 2200 DCD 09/09 (Porcine) SC 0544 Levothyroxine Sodium 0.05 MG DAILY AC 09/08 0700 DCD 09/09 PO 0544 Metoprolol Tartrate 50 MG BID 09/07 2200 DCD 09/09 PO 0828 Omeprazole 40 MG DAILY AC 09/08 1453 DCD 09/09 PO 0544 Oseltamivir Phosphate 30 MG BID 09/08 1000 DCD 09/09 PO 09/12 1001 0828 Trimethobenzamide HCl 200 MG Q8P PRN 09/08 0315 DCD 09/08 IM 0615 Last 24 Hrs of Lab/Pete Results Last 24 Hrs of Labs/Mics: Laboratory Tests 09/09/17 0708: Anion Gap 10, Estimated GFR 39 L, BUN/Creatinine Ratio 16.9, CBC w Diff NO MAN DIFF REQ, RBC 3.97 L, MCV 85.1, MCH 28.8, MCHC 33.8, RDW 16.5 H, MPV 7.3 L, Gran % 65.6, Lymphocytes % 23.7, Monocytes % 10.4 H, Eosinophils % 0.1, Basophils % 0.2, Absolute Granulocytes 3.6, Absolute Lymphocytes 1.3, Absolute Monocytes 0.6, Absolute Eosinophils 0, Absolute Basophils 0 Assessment/Plan Assessment: 87 y F with presented to the ED for evaluation of cough and weakness. tested positive for flu PMH: hypertension, hypothyroidism, bradycardia and complete heart block (? A. 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 This is better characterized on CT. No definite new superimposed findings. Patient was admitted to [facility] floor for management of following conditions: Respiratory distress, fever, cough FLU Patient is on oxygen at home when necessary, however here saturating well in 1 L. Patient was positive for flu. Chest x-ray was not indicative of pneumonia but rather chronic fibrosis we will hold off on antibiotics for now. Despite this more than 48 hours from onset of symptoms, tamiflu was started considering comorbidities patient was admitted to general medicine floor, o2 supplements in place. With improvement patient requested to be discharged. JD Increased BUN creatinine ratio indicating prerenal acute kidney injury. 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 Since this is chronic we will look for etiologies on risk factors of alcohol viral hepatitis or Bustos. recommended to follow with PCP. Chronic medical conditions, CVA, hypothyroidism, cardiac problems Continue home medication -Plavix, Lipitor, Synthroid, Tigan, Lopressor DVT prophylaxis, Alps and heparin DNR/DNI Heart healthy diet Patient was discharged with recommendations below: Please follow with your PCP within one week of discharge. Please follow with your mix mill tender within 1 week of discharge. Please take your medication as ordered. Please come back to hospital if symptoms worsen. Problem List: 1. Influenza Pain Ratin Pain Location: None Pain Goal: Pain 4 or less Pain Plan: Continue current plan Tomorrow's Labs & Rationales: David Basilio DC 09/09/17 1149: Attending Review Statement Attending Statement Attending MD Statement: examined this patient, discuss w/resident/PA/BREWERY CELLAR WORKER, agreed w/resident/PA/BREWERY CELLAR WORKER, discussed with family, reviewed EMR data (avail), discussed with nursing, discussed with case mgmt, reviewed images, amended to note Attending Assessment/Plan: 87-year-old female with history of hypertension and hypothyroidism, third-degree heart block status post dual-chamber MRA safe pacemaker, history of pulmonary fibrosis follows up with Dr. Hale presented to the ED with complaints of cough and weakness found to have flu related pneumonia and hypoxic respiratroy failure which she seems to be improved. Patient seen by Dr Hale and stable for discharge. Anticipate dc soon.
--- NOTE | 2017-09-09 08:16 | PN- Pulmonary ---
Subjective HPI/Critical Care Issues: Doing ok stable Objective Current Medications: Current Medications Sig/[facility] Start time Last Medication Dose Route Stop Time Status Admin Acetaminophen 650 MG Q6P PRN 09/07 1845 AC 09/07 PO 1854 Albuterol Sulfate 3 ML Q4P PRN 09/07 2200 AC INH Atorvastatin Calcium 10 MG DAILY 09/08 1000 AC 09/08 PO 0938 Clopidogrel Bisulfate 75 MG DAILY 09/08 1000 AC 09/08 PO 0939 Guaifenesin 10 ML .STK-MED ONE 09/08 2335 DC PO 09/08 2336 Guaifenesin 10 ML Q4P PRN 09/07 1845 AC 09/08 PO 2336 Heparin Sodium 5,000 UNIT Q8 09/07 2200 AC 09/09 (Porcine) SC 0544 Levothyroxine Sodium 0.05 MG DAILY AC 09/08 0700 AC 09/09 PO 0544 Metoprolol Tartrate 50 MG BID 09/07 2200 AC 09/08 PO 2136 Omeprazole 40 MG DAILY AC 09/08 1453 AC 09/09 PO 0544 Oseltamivir Phosphate 30 MG BID 09/08 1000 AC 09/08 PO 09/12 1001 2134 Trimethobenzamide HCl 200 MG Q8P PRN 09/08 0315 AC 09/08 IM 0615 Vital Signs & I&O Last 24 Hrs of Vitals and I&O: Vital Signs Date Time Temp Pulse Resp B/P B/P Pulse O2 O2 Flow FiO2 Mean Ox Delivery Rate 09/09 0618 97.7 68 22 122/68 95 Room Air 09/09 0000 Nasal 1.0L Cannula 09/08 2314 97.8 55 20 138/84 94 Nasal 1.0L Cannula 09/08 2136 74 148/80 09/08 1950 95 Nasal 1.0L Cannula 09/08 1600 97 Nasal 1.5L Cannula 09/08 1419 96 Nasal 1.5L Cannula 09/08 0938 97.7 142/84 Intake & Output 09/09 1600 09/09 0800 09/09 0000 Intake Total 480 Output Total Balance 480 Intake, Oral 480 Impression/Plan Impression/Plan Impression/Plan: General Appearance Alert, Oriented X3, Cooperative, No Acute Distress Skin No Significant Lesion Skin Temp/Moisture Exam: Warm/Dry Sepsis Skin Exam (color): Normal for Ethnicity HEENT Atraumatic, EOMI, Mucous Membr. moist/pink Cardiovascular Normal S1, Normal S2, paced Lungs bilateral scattered crackles Abdomen Soft, No Tenderness PT with hypertension, hypothyroidism, bradycardia and complete heart block (? A. 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, diverticulitis status post perforation status post colostomy with revision 3 years ago, hiatal hernia with GERD, and hyperlipidemia Now with SIg influenza pna with resp failure hypoxic now better Sig ILD prob NSIP due to chronic hiatal hernia with recurrent aspiration due to gerd Leukopenia due to prob viral infection Hiatal hernia with occ dysphagia Altered lfts to follow - may be due to influenza CKD with mild faustino now back to baseline Previous arrythmia, cva, hypothyroid and htn and hyperlipedemia stable REC Cont tamiflu sputum culture NO need for steroids Nebs prn PO ppi KEep hob up cont all other meds ok to dc soon Should follow up with me in 2-3 weeks unless she is worse clinically then sooner Pt aware
[2017-09-09 08:22] LABS: ABSOLUTE BASOPHIL COUNT 0 /CUMM (0.0-0.2); ABSOLUTE EOSINOPHIL COUNT 0 /CUMM (0.0-0.7); ABSOLUTE GRANULOCYTE CT 3.6 /CUMM (1.4-6.5); ABSOLUTE LYMPH COUNT 1.3 /CUMM (1.2-3.4); ABSOLUTE MONOCYTE COUNT 0.6 /CUMM (0.10-0.60); BASOPHIL % 0.2 % (0.0-2.0); MEAN PLATELET VOLUME 7.3 FL (7.4-10.4)
[2017-09-09 08:28] VITALS: BP 122/68
[2017-09-09] MEDS ORDERED: TAMIFLU30 M1 PO ×2 (08:30→10:02)
[2017-09-09] MEDS ORDERED: GUAIFENESI100 MG/5 M PO ×2 (08:30→10:02)
--- NOTE | 2017-09-09 08:36 | Patient Discharge Instructions ---
Discharge Instructions General Discharge Information You were seen/treated for: Flu Watch for these problems: Severe shortness of breathing, weakness, chest pain, palpitation, lightheadedness, or worsening of any other symptoms Special Instructions: Please follow with your PCP within one week of discharge. Please follow with your senior product consultant within 1 week of discharge. Please take your medication as ordered. Please come back to hospital if symptoms worsen. Diet Continue normal diet: No Recommended Diet: Heart Healthy Activity Full Activity/No Limits: No Activity Self Limited: Yes Acute Coronary Syndrome Inclusion Criteria At DC or during hospital stay patient has or had the following: ACS DIAGNOSIS No Discharge Core Measures Meds if any: Prescribed or Continued at Discharge Meds if any: NOT Prescribed or Continued at Discharge Congestive Heart Failure Inclusion Criteria At DC or during hospital stay patient has or had the following: CHF DIAGNOSIS No Discharge Core Measures Meds if any: Prescribed or Continued at Discharge Meds if any: NOT Prescribed or Continued at Discharge Cerebrovascular accident Inclusion Criteria At DC or during hospital stay patient has or had the following: CVA/TIA Diagnosis No Discharge Core Measures Meds if any: Prescribed or Continued at Discharge Meds if any: NOT Prescribed or Continued at Discharge Venous thromboembolism Inclusion Criteria VTE Diagnosis No VTE Type NONE VTE Confirmed by (Test) NONE Discharge Core Measures - Per Current guidelines, there needs to be overlap - treatment for the first 5 days of Warfarin therapy. - If discharged on Warfarin prior to 5 days of - overlap therapy, the patient will need to be - assessed for post discharge needs including - *Post discharge parental anticoagulation - *Warfarin and/or parental anticoagulation education - *Follow up date to check INR post discharge At least 5 days overlap therapy as Inpatient No Meds if any: Prescribed or Continued at Discharge Note: Overlap Therapy is Warfarin and Anticoagulant Meds if any: NOT Prescribed or Continued at Discharge
[2017-09-09 08:53] LABS: EOSINOPHIL % 0.1 % (0-5); GRANULOCYTE % 65.6 % (42.2-75.2); HEMATOCRIT 33.8 % (37-47); MEAN CORPUSCULAR HGB 28.8 PG (27.0-31.0); MEAN CORPUSCULAR HGB CONC 33.8 G/DL (33.0-37.0); MEAN CORPUSCULAR VOLUME 85.1 FL (81.0-99.0); PLATELET COUNT 357 /CUMM (130-400); RBC DISTRIBUTION WIDTH 16.5 % (11.5-14.5); RED BLOOD CELL CT 3.97 /CUMM (4.20-5.40)
[2017-09-09 08:57] LABS: WHITE BLOOD CELL COUNT 5.5 /CUMM (4.8-10.8)
--- NOTE | 2017-09-09 16:38 | Discharge Summary ---
Visit Information Visit Dates Admission Date: 09/07/17 Discharge Date: 09/09/17 Hospital Course Course Attending Physician: Behzad Reynolds MD Primary Care Physician: Jossy Terry MD Hospital Course: 87 y F with presented to the ED for evaluation of cough and weakness. tested positive for flu PMH: hypertension, hypothyroidism, bradycardia and complete heart block (? A. 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 This is better characterized on CT. No definite new superimposed findings. Patient was admitted to [facility] floor for management of following conditions: Acute hypoxic respiratory failure FLU Patient is on oxygen at home when necessary, however in the ED was requiring supplemental oxygen to keep saturation, indicating acute hypoxic respiratory failure. Patient was positive for flu. Chest x-ray was not indicative of pneumonia but rather chronic fibrosis we will hold off on antibiotics for now. Despite this more than 48 hours from onset of symptoms, tamiflu was started considering comorbidities. Patient was admitted to general medicine floor, o2 supplements in place. With improvement patient requested to be discharged. Patient was considered stable to be discharged. JD Increased BUN creatinine ratio indicating prerenal acute kidney injury. Patient reported decreased by mouth intake (postrenal etiologies are not likely) Cr improved to 1.3. recomended to follow with PCP in outpatient. 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 Since this is chronic we will look for etiologies on risk factors of alcohol viral hepatitis or Bustos. recommended to follow with PCP. Chronic medical conditions, CVA, hypothyroidism, cardiac problems Continue home medication -Plavix, Lipitor, Synthroid, Tigan, Lopressor Patient was discharged with recommendations below. Allergies: Coded Allergies: simvastatin (MUSCLE ACHES 06/11/16) Disposition Summary Disposition Principal Diagnosis: Acute hypoxic respiratory failure Flu, ILD Additional Diagnosis: Acute kidney injury Transaminitis, increased liver enzymes Discharge Disposition: home health services Discharge Instructions General Discharge Information Code Status: Do Not Resucitate/Intubat Patient's Diet: Heart healthy diet Patient's Activity: Self-limited, as tolerated, ambulation with assistance Follow-Up Instructions/Appts: Please follow with your PCP within one week of discharge. Please follow with your inspector rubber stamp die within 1 week of discharge. Please take your medication as ordered. Please come back to hospital if symptoms worsen. Medications at Discharge Discharge Medications: Continue taking these medications: Levothyroxine Sodium (Levothyroxine Sodium) 50 MCG TABLET 1 Tablet ORAL DAILY Comments: Last Taken: 09/09/17 Time: 5:45 AM Losartan (Cozaar) 100 MG TABLET 100 Milligram ORAL DAILY Days = 30 Comments: NOT GIVEN IN HOSPITAL Amlodipine Besylate (Amlodipine Besylate) 10 MG TABLET 1 Tablet ORAL DAILY Qty = 28 Comments: NOT GIVEN IN HOSPITAL Hydrochlorothiazide (Hydrochlorothiazide) 25 MG TABLET 1 Tablet ORAL DAILY Comments: NOT GIVEN IN HOSPITAL Metoprolol Tartrate (Lopressor) 50 MG TABLET 1 Tablet ORAL TWICE DAILY Comments: Last Taken: 09/09/17 Time: 8:30 AM Clopidogrel Bisulfate (Plavix) 75 MG TABLET 75 Milligram ORAL DAILY Qty = 30 Comments: Last Taken: 09/09/17 Time: 8:30 AM Esomeprazole (Nexium) 40 MG CAPSULE.DR 1 Capsule ORAL TWICE DAILY Qty = 30 Comments: Last Taken: 09/09/17 Time: 5:45 AM *PRILOSEC GIVEN INSTEAD* Atorvastatin Calcium (Atorvastatin Calcium) 10 MG TABLET 1 Tablet ORAL DAILY Qty = 30 Comments: Last Taken: 09/09/17 Time: 8:30 AM Start taking the following new medications: Oseltamivir Phosphate (Tamiflu) 30 MG CAPSULE 30 Milligram ORAL TWICE DAILY Qty = 7 No Refills Instructions: . Comments: Last Taken: 09/09/17 Time: 8:30 AM Guaifenesin (Guaifenesin) 100 MG/5 ML LIQUID 10 Milliliters ORAL EVERY 4 HOURS NEEDED as needed for COUGH Qty = 4 No Refills Instructions: . Comments: Last Taken: 09/08/17 Time: 11:30 PM Copies To: Geoffrey SANTOS,Eyal Gauthier; Mara SANTOS,Jossy D. Attending MD Review Statement Documenting Attending: David Harmon MD
== END 2017-09-09 12:04 | disposition home health service (06) | DRG 193 ==
LOC: ERH 13:53 → 2NB 17:02 → ERHI 17:02 → ENRESERV 17:32 → ENTRNSPT 18:02 → 2NB 18:11 → CMPTRNSPT 18:21 → ENPENDDIS 09-09 10:00 → ENTRNSPT 09-09 11:40 → EDTRNSPTSTS 09-09 11:56 → EDTRNSPT 09-09 11:56 → 2NB 09-09 12:04 → CMPTRNSPT 09-09 12:28
PROVIDERS: Internal Medicine; Physician Assistant; Radiology Vascular & Interventional Radiology
DX: J10.1 Influenza due to other identified influenza virus with other respiratory manifestations (principal); J96.91 Respiratory failure, unspecified with hypoxia; N17.9 Acute kidney failure, unspecified; I44.2 Atrioventricular block, complete; I48.0 Paroxysmal atrial fibrillation; J84.10 Pulmonary fibrosis, unspecified; K57.92 Diverticulitis of intestine, part unspecified, without perforation or abscess without bleeding; D72.819 Decreased white blood cell count, unspecified; E03.9 Hypothyroidism, unspecified; E78.5 Hyperlipidemia, unspecified; I12.9 Hypertensive chronic kidney disease with stage 1 through stage 4 chronic kidney disease, or unspecified chronic kidney disease; K21.9 Gastro-esophageal reflux disease without esophagitis; R74.0 Nonspecific elevation of levels of transaminase and lactic acid dehydrogenase [LDH]; Z79.01 Long term (current) use of anticoagulants; Z95.0 Presence of cardiac pacemaker; R00.1 Bradycardia, unspecified; Z86.73 Personal history of transient ischemic attack (TIA), and cerebral infarction without residual deficits; Z98.0 Intestinal bypass and anastomosis status; K44.9 Diaphragmatic hernia without obstruction or gangrene; Z88.8 Allergy status to other drugs, medicaments and biological substances; I45.10 Unspecified right bundle-branch block; K80.20 Calculus of gallbladder without cholecystitis without obstruction; M19.90 Unspecified osteoarthritis, unspecified site; Z66 Do not resuscitate; J18.9 Pneumonia, unspecified organism
CPT/HCPCS: 2NBP; 36415; 36592; 71046; 81001; 82436; 87040; 87070; 87086; 87804; 87804-59; 93005; 93010; 96374; 97110-GO; 97116-GO; 97161-GP; 97530-GO; 99291; J1644; J2930; J3250

== ENCOUNTER 2018-03-04 12:39 | Emergency (ER) | payer OTHER, MEDICARE ==
[~2018-03-04] VITALS: Ht 160 cm; Wt 54.4 kg
[~2018-03-04 12:39] MED LIST changes: +ATORVASTATIN CA10 M1 PO; +GUAIFENESI100 MG/5 M PO; +TAMIFLU30 M1 PO
[2018-03-04 13:07] LABS: ABSOLUTE BASOPHIL COUNT 0.1 /CUMM (0.0-0.2); ABSOLUTE EOSINOPHIL COUNT 0.3 /CUMM (0.0-0.7); ABSOLUTE GRANULOCYTE CT 4.8 /CUMM (1.4-6.5); ABSOLUTE LYMPH COUNT 1.4 /CUMM (1.2-3.4); ABSOLUTE MONOCYTE COUNT 0.7 /CUMM (0.10-0.60); BASOPHIL % 0.9 % (0.0-2.0); EOSINOPHIL % 4.7 % (0-5); GRANULOCYTE % 65.6 % (42.2-75.2); HEMATOCRIT 35.9 % (37-47); MEAN CORPUSCULAR HGB CONC 33.8 G/DL (33.0-37.0); MEAN CORPUSCULAR VOLUME 85.9 FL (81.0-99.0); PLATELET COUNT 738 /CUMM (130-400); RBC DISTRIBUTION WIDTH 15.6 % (11.5-14.5); RED BLOOD CELL CT 4.18 /CUMM (4.20-5.40); WHITE BLOOD CELL COUNT 7.3 /CUMM (4.8-10.8)
--- NOTE | 2018-03-04 13:18 | ED GENERAL ADULT ---
"History of Present Illness General Chief Complaint: Dizziness Stated Complaint: DIZZINESS/SYNCOPAL EPISODES PER PT Source: patient Exam Limitations: no limitations Vital Signs & Intake/Output Vital Signs & Intake/Output Vital Signs Date Time Temp Pulse Resp B/P B/P Pulse O2 O2 Flow FiO2 Mean Ox Delivery Rate 03/04 1422 97.6 68 20 122/60 96 Room Air 03/04 1417 98 Room Air 03/04 1244 97.5 80 20 122/77 95 Room Air Allergies Coded Allergies: simvastatin (MUSCLE ACHES 06/11/16) Reconcile Medications Amlodipine Besylate 10 MG TABLET 1 TAB PO DAILY BP (Reported) Atorvastatin Calcium 10 MG TABLET 1 TAB PO DAILY CHOLESTEROL (Reported) Cephalexin (Keflex) 500 MG CAPSULE 1 CAP PO BID UTI Clopidogrel Bisulfate (Plavix) 75 MG TABLET 75 MG PO DAILY ANTI-PLATELET Esomeprazole (Nexium) 40 MG CAPSULE.DR 1 CAP PO BID GERD Guaifenesin 100 MG/5 ML LIQUID 10 ML PO Q4P PRN COUGH . Hydrochlorothiazide 25 MG TABLET 1 TAB PO DAILY BP (Reported) Levothyroxine Sodium 50 MCG TABLET 1 TAB PO DAILY hypothyroidism (Reported) Losartan (Cozaar) 100 MG TABLET 100 MG PO DAILY hypertension Metoprolol Tartrate (Lopressor) 50 MG TABLET 1 TAB PO BID BP (Reported) Oseltamivir Phosphate (Tamiflu) 30 MG CAPSULE 30 MG PO BID LUNG HEALTH . Triage Note: PT C/O FEELING DIZZY AND FAINT FOR MONTHS. STATES SHE HAS BEEN WORKED UP NURMEROUS TIMES AND SEEN ENT FOR SAME BUT THE CONDITION HASN'T IMPROVED. PT C/O CHEST PRESSURE BUT STATES SHE ALWAYS HAS IT. PT C/O SOB BUT STATES THAT IS NORMAL FOR HER Triage Nurses Notes Reviewed? yes Onset: Gradual Duration: months Timing: intermittent HPI: 87-year-old female with a history of paroxysmal A. fib, hypertension, dyslipidemia, third-degree AV block (dual-chamber permanent pacemaker), pulmonary fibrosis, hypothyroid presenting with intermittent episodes of lightheadedness over the past several months. Patient states that prior to her pacemaker placement she had recurrent syncopal episodes, has not had any syncopal episodes since her pacemaker was placed. Has had intermittent episodes of lightheadedness that are worse with standing. States that the episodes used to quickly self resolved after she had been standing for a few minutes, but episodes have been getting progressively longer. At home she ambulates with a cane without difficulty. Denies any recent falls or syncope. States that she is followed by Dr. Grimes and has had no additional cardiac etiology for her lightheadedness. She was referred to ENT for evaluation of her lightheadedness with unremarkable workup. She is now pending neurology workup with Dr. Jordan for her lightheadedness in April. Patient presents to the emergency department today because ENT had recommended CT of her head while she is awaiting neurology evaluation. Patient denies any current lightheadedness and is currently asymptomatic. Triage note mentions chest pressure and shortness of breath, which the patient states are chronic secondary to her pulmonary fibrosis. Denies any acute worsening of her baseline symptoms, and states that these are not her concern today. Her concern is lightheadedness. Denies headache, visual changes, dizziness, head trauma, extremity weakness, gait instability. (Maria Ines LITTLE,Lillian) Past History Travel History Traveled to [place] past 21 day No Medical History Any Pertinent Medical History? 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 Other Medical Hx: Hiatal Hernia Heart Block diverticulitis s/p colostomy with reversal paroxysmal atrial fibrillation HTN (HYPERTENSION) (401.9 | I10) PACEMAKER (V45.01 | Z95.0) Hypothyroidism colonovaginal fistula s/p repair Osteoarthritis Cholelithiasis aspiration pneumonitis RBBB (426.4 | I45.10) Arpita fundoplication CVA (CEREBRAL VASCULAR ACCIDENT) (434.91 | I63.9) SYNCOPE (780.2 | R55) DYSLIPIDEMIA (272.4 | E78.5) History of MRSA: No History of VRE: No History of CDIFF: No Influenza Vaccine: 03/14/17 Surgical History Surgical History: Arpita fundoplication colonovaginal fistula s/p repair Psychosocial History Who do you live with Daughter Services at Home Oxygen What is your primary language Northern Irish Tobacco Use: Never used ETOH Use: denies use Illicit Drug Use: denies illicit drug use Family History Family History, If Any: Relation not specified for: *No pertinent family history Hx Contributory? No (Lillian Lee) Review of Systems Review of Systems Constitutional: Reports: no symptoms. EENTM: Reports: no symptoms. Respiratory: Reports: see HPI. Cardiovascular: Reports: see HPI. GI: Reports: no symptoms. Genitourinary: Reports: no symptoms. Musculoskeletal: Reports: no symptoms. Skin: Reports: no symptoms. Neurological/Psychological: Reports: see HPI. Hematologic/Endocrine: Reports: no symptoms. Immunologic/Allergic: Reports: no symptoms. All Other Systems: Reviewed and Negative (Lillian Lee) Physical Exam Physical Exam General Appearance: well developed/nourished, no apparent distress, alert, awake , comfortable Comments: Gen.: Well-nourished, well-developed, no acute distress. Head: Normocephalic, atraumatic. Eyes: Normal inspection bilaterally, pupils equally round and reactive bilaterally, EOMs intact Ears: Normal inspection bilaterally Nose: Normal inspection Neck: Normal inspection Lungs: clear to auscultation bilaterally, normnal breath sounds Heart: regular rate and rhythm, audible murmur Abdomen: soft and non-tender Extremities: Normal inspection Neurologic: alert and oriented x3, cranial nerves II through XII intact, sensation intact, 5 out of 5 motor strength, reflexes 2+, cerebellar function intact Skin: warm and dry Psychiatric: Normal mood and affect, no apparent delusions or hallucinations, behavior appropriate Core Measures ACS in differential dx? No CVA/TIA Diagnosis: No Sepsis Present: No Sepsis Focused Exam Completed? No (Lillian Lee) Progress Differential Diagnoses I considered the following diagnoses in my evaluation of the patient: [ Orthostasis versus vasovagal versus dehydration versus anemia versus ACS versus cardiac arrhythmia versus CVA versus mass] Plan of Care: Orders Procedure Date/time Status Add-on Test (ER Only) 03/04 1512 Active CULTURE,URINE 03/04 1430 Active URINALYSIS 03/04 1257 Complete TROPONIN LEVEL 03/04 1247 Complete MAGNESIUM 03/04 1247 Complete COMPREHENSIVE METABOLIC PANEL 03/04 1247 Complete CBC WITHOUT DIFFERENTIAL 03/04 1247 Complete B-TYPE NATRIURETIC PEP (BNP) 03/04 1247 Complete EKG 03/04 1241 Active Laboratory Tests 03/04/18 1430: Urine Color YEL, Urine Clarity HAZY H, Urine pH 7.0, Ur Specific [place] 1.010, Urine Protein NEG, Urine Ketones NEG, Urine Nitrite POS H, Urine Bilirubin NEG, Urine Urobilinogen 0.2, Ur Leukocyte Esterase SMALL H, Ur Microscopic SEDIMENT EXAMINED, Urine RBC RARE, Urine WBC 50-75 H, Ur Epithelial Cells FEW, Urine Bacteria MANY H, Urine Hemoglobin NEG, Urine Glucose NEG 03/04/18 1400: Anion Gap 6, Estimated GFR 35 L, BUN/Creatinine Ratio 22.1, Glucose 94, Calcium 9.8, Magnesium 2.3, Total Bilirubin 0.4, AST 28, ALT 34, Alkaline Phosphatase 105, Troponin I < 0.01, Fok-H-Gcverjclznk Pept 232 H, Total Protein 6.9, Albumin 4.1, Globulin 2.8, Albumin/Globulin Ratio 1.5 03/04/18 1255: CBC w Diff NO MAN DIFF REQ, RBC 4.18 L, MCV 85.9, MCH 29.0, MCHC 33.8, RDW 15.6 H, MPV 7.0 L, Gran % 65.6, Lymphocytes % 18.6 L, Monocytes % 10.2 H, Eosinophils % 4.7, Basophils % 0.9, Absolute Granulocytes 4.8, Absolute Lymphocytes 1.4, Absolute Monocytes 0.7 H, Absolute Eosinophils 0.3, Absolute Basophils 0.1 Microbiology 03/04 1430 URINE ROUT: Urine Culture - RECD CT head IMPRESSION: 1. There are no acute bleeds or territorial infarcts. No masses are demonstrated. 2. There is diffuse volume loss and there are chronic microvascular ischemic changes. 3. There is persistent fluid at the left mastoid tip. Patient has no mastoid tenderness to clinically correlate with the above findings. She was informed of all above findings. CXR IMPRESSION: 1. The study redemonstrates coarse interstitial markings in the lower zones bilaterally, which appears stable. There are also honeycomb changes in the upper zones, better demonstrated on the prior the scan. 2. There are no acute cardiopulmonary findings. EKG shows ventricular pacing. Labs show kidney function that is at baseline. She has a slight increase in her platelets in the 700s, she is informed of these findings and she will follow-up with her PMD for reevaluation. She is currently already on an antiplatelet with Plavix. UA is suspicious for infection, urine culture sent. On reassessment patient states that she has had dysuria for the past 2 days with urinary frequency having to get up multiple times per night to urinate. Low concern for systemic infection as she has been afebrile with no nausea or vomiting, and has no CVA tenderness. Given single dose of IV ceftriaxone in the emergency department. Sent home with Rx Keflex. She will follow-up with her PMD for reevaluation, and will follow up with Dr. Jordan as scheduled in April. Given strict return precautions. Initial ED EKG: pacemaker rhythm (ventricular pacing) (Lillian Lee) Departure Departure Disposition: HOME OR SELF CARE Condition: Stable Clinical Impression Primary Impression: UTI (urinary tract infection) Secondary Impressions: Light headedness Referrals: Mara SANTOS,Jossy Montelongo (PCP/Family) Additional Instructions: Take Keflex as prescribed. Maintain adequate fluid intake. Follow-up with Dr. Jordan as scheduled in April. Follow-up with your primary care provider for reevaluation of your UTI. Return to the emergency department for any new or worsening symptoms. Departure Forms: Customer Survey General Discharge Information Prescriptions: Current Visit Scripts Cephalexin (Keflex) 1 CAP PO BID #20 CAP (Lillian Lee) PA/SERVER ENGINEER Co-Sign Statement Statement: ED Attending supervision documentation- [X] I saw and evaluated the patient. I have also reviewed all the pertinent lab results and diagnostic results. I agree with the findings and the plan of care as documented in the PA's/SERVER ENGINEER's documentation. [X] I have reviewed the ED Record and agree with the PA's/SERVER ENGINEER's documentation. [] Additions or exceptions (if any) to the PAs/SERVER ENGINEER's note and plan are summarized below: [] (Loreto SANTOS,Nilson Senior) Critical Care Note Critical Care Note Critical Care Time: non-applicable (Lillian Lee)"
--- NOTE | 2018-03-04 14:03 | CT SCAN REPORT ---
EXAMINATION: CT HEAD WITHOUT CONTRAST CLINICAL INFORMATION: Light headedness. Assess for mass or CVA. COMPARISON: CT scan of the head 12/29/2015. TECHNIQUE: Contiguous axial imaging was performed from the skull base to vertex without intravenous administration of contrast. DLP: 617.35 mGy-cm FINDINGS: There is no evidence of acute intracranial hemorrhage or territorial infarction. No abnormal mass effect or midline shift is seen. Barrios to white matter differentiation is well preserved. No extra-axial fluid collections are identified. The ventricles and sulci are commensurately prominent consistent with moderate to severe diffuse volume loss. There is prominence of the extra-axial CSF along the right greater than left cerebral convexities consistent with hygromas. There are patchy areas of low attenuation in the periventricular and subcortical white matter, consistent with chronic microvascular ischemic disease. The calcified ectatic left supraclinoid internal carotid artery is unchanged. There are also extensive atheromatous calcifications of the cavernous internal carotid arteries. There have been bilateral lens extractions. There is relatively stable fluid at the left mastoid tip. There are severe degenerative changes of the bilateral temporomandibular joints. The visualized paranasal sinuses are well-aerated. IMPRESSION: 1. There are no acute bleeds or territorial infarcts. No masses are demonstrated. 2. There is diffuse volume loss and there are chronic microvascular ischemic changes. 3. There is persistent fluid at the left mastoid tip.
--- NOTE | 2018-03-04 14:09 | RADIOLOGY REPORT ---
EXAMINATION: XR CHEST CLINICAL INFORMATION: Chest pain and dizziness. COMPARISON: Chest x-ray 09/07/2017. CT scan of the chest 03/18/2017. TECHNIQUE: Frontal and lateral views of the chest were obtained. FINDINGS: The study redemonstrates the 2-lead pacemaker from the right chest, unchanged compared to the prior study. There is mild prominence of the cardiac silhouette, which appear stable. The aortic arch is calcified and unfolded. The lung darby are moderately well-expanded. There are chronic interstitial changes at the bases bilaterally. Honeycomb changes at the right greater than left upper zones are better demonstrated on the prior CT scan. There is no focal consolidation. There are no pleural effusions or pneumothoraces. There are surgical clips in the epigastrium. There is a mild dextroscoliosis and there are multilevel spondylitic changes in the spine. IMPRESSION: 1. The study redemonstrates coarse interstitial markings in the lower zones bilaterally, which appears stable. There are also honeycomb changes in the upper zones, better demonstrated on the prior the scan. 2. There are no acute cardiopulmonary findings.
[2018-03-04 14:22] VITALS: BP 122/60
[2018-03-04] MEDS ORDERED: KEFLEX500 M1 PO (15:18)
== END 2018-03-04 15:42 ==
LOC: ERH 12:39
PROVIDERS: Physician Assistant
DX: N39.0 Urinary tract infection, site not specified (principal); R42 Dizziness and giddiness
CPT/HCPCS: 71046; 81001; 87086; 93005; 93010; 96361; 96374; J0696; J7040